=== PATIENT | male | born 1960 | race Caucasian/White ===

== ENCOUNTER → 2020-06-12 10:05 | Outpatient (CLI) | payer OTHER, SELFPAY ==
--- NOTE | ~2020-06-12 | CT_ITS ---
EXAMINATION: CT abdomen pelvis wo con EXAM DATE: 06/12/2020 10:28 INDICATION: Acute right flank pain, Decreased appetite. Dark urine. Hypertension. TECHNIQUE: Spiral CT of the abdomen and pelvis was performed without contrast. Axial, coronal and s agittal images of the abdomen and pelvis were reviewed. The dose-length product (DLP) for this exami nation was 835.84 mGy-cm. The exposure was tailored according to patient size (auto mA exposure cont rol), and iterative reconstruction (ASIR) was used as additional dose reduction technique. There is no prior study for comparison. FINDINGS: Appendix is severely dilated with extensive adjacent inflammation and also suspect perforat ion with a 1.2 cm fluid pocket probably early abscess. Cecal base is edematous. The liver, spleen, a drenal glands and pancreas are unremarkable. Gallbladder is unremarkable. No biliary obstruction. There is no nephrolithiasis or hydronephrosis. The prostate is unremarkable. The bladder is collap sed at time of imaging limiting evaluation. There is no retroperitoneal or pelvic lymphadenopathy. There is mild scattered arteriosclerotic disease. The stomach and small bowel are unremarkable. There is expected amount of colonic stool. No free i ntraperitoneal gas. The heart is normal in size. There are no pericardial or pleural effusions. M ild basilar emphysema. The bones are unremarkable. IMPRESSION: Findings consistent with perforated appendicitis. Probable small adjacent abscess. I discussed acute findings with Rozina Meza PA-C at 06/12/2020 10:40 CDT. Reviewed, dictated and finalized at location A. IMPRESSION: Findings consistent with perforated appendicitis. Probable small ad jacent abscess. I discussed acute findings with Rozina Meza PA-C at 06/12/2020 10:40 CDT .
== END ==
PROVIDERS: PCP Physician Assistant; Visit Provider Physician Assistant
DX: R10.9 Unspecified abdominal pain (principal); R63.0 Anorexia
CPT/HCPCS: 74176

== ENCOUNTER 2020-06-12 11:04 | Inpatient (IN) | payer OTHER, MEDICAID, SELFPAY ==
[2020-06-12] VITALS (14 sets, daily range): BP systolic 105–158; BP diastolic 62–106; PULSE 77–102; RESP 15–30; TEMP 36.1–36.8; O2SAT 74–99; BMI 29.6
--- NOTE | ~2020-06-12 | XR_ITS ---
XR chest 1V portable DATE: 06/13/2020 18:44 INDICATION: Shortness of breath. Hypoxia. History of hypertension. Former smoker. TECHNIQUE: Portable AP chest on 06/13/2020 at 1846 hours COMPARISON: 06/12/2020 AP and lateral chest FINDINGS: Heart size appears normal. There is moderately prominent elevation the right leaf of the di aphragm. There are bibasilar infiltrates and/atelectasis. No pulmonary vascular congestion or pleural effusion or pneumothorax is evident. IMPRESSION: Bibasilar infiltrate and/atelectasis Reviewed, dictated and finalized at location A.
--- NOTE | ~2020-06-12 | XR_ITS ---
EXAMINATION: XR chest 2V DATE: 06/12/2020 15:16 INDICATION: Perforated acute appendicitis. Preop. TECHNIQUE: Frontal and lateral views of the chest were obtained. COMPARISON: CT abdomen and pelvis 06/12/2020 FINDINGS: The chest demonstrates clear lungs without pneumonia, pleural effusion, or pneumothorax. Th e heart size is normal. IMPRESSION: 1. No acute cardiopulmonary disease. Reviewed, dictated and finalized at location A.
--- NOTE | ~2020-06-12 | CT_ITS ---
EXAMINATION: CTA chest PE abdomen pel EXAM DATE: 06/14/2020 11:06 INDICATION: Hypoxia, worse fever/leukocytosis with appendicitis . TECHNIQUE: Spiral CTA of the chest (pulmonary arteries) was performed with 100 cc Omnipaque 350 intr avenous contrast injection. Images were acquired during the pulmonary arterial phase. Coronal maxi mum intensity projection 3D-reconstructions were created by the technologist on dedicated workstation . Axial, coronal and sagittal reformatted images were reviewed. Spiral CT of the abdomen and pelvis was then performed with the same intravenous contrast injection. Axial, coronal and sagittal reform atted images were reviewed. The dose-length product (DLP) for this examination was 1096.58 mGy-cm. The exposure was tailored according to patient size (auto mA exposure control), and iterative recons truction (ASIR) was used as additional dose reduction technique. Comparison is made to prior examinat ion from 06/12/2020. FINDINGS: CHEST: Pulmonary arteries are well opacified and without intraluminal filling defects. No thoracic aortic dissection. There is mild to moderate emphysema. Development of bibasilar subsegmental atele ctasis. There are no pleural or pericardial effusions. Tracheobronchial tree is patent. There is no mediastinal, hilar or axillary lymphadenopathy. There is no pneumothorax. Heart normal in siz e. No evidence of coronary arterial calcification. ABDOMEN PELVIS: Patient has perforated appendicitis, with a contained periappendiceal abscess and alex rounding phlegmon measuring about 3 cm in diameter, has increased in size compared to 06/12. No free i ntraperitoneal air. There is moderate amount of colonic fluid and gas. There is mild scattered coloni c diverticulosis. There is no adjacent inflammatory change to suggest diverticulitis. The liver, spleen, adrenal glands and pancreas are unremarkable. Gallbladder is unremarkable. No bi liary obstruction. Portal and splenic veins are patent. Kidneys enhance symmetrically. There is no hydronephrosis. Calcified vasa deferentia. The prostate is unremarkable. Some diffuse bladder wall thickening, could indicate chronic cystitis. Acute cystitis not excludable. There is no retroperito antonino or pelvic lymphadenopathy. There is mild scattered arteriosclerotic disease. There are no os teoblastic or osteolytic lesions identified. IMPRESSION: 1. Perforated appendicitis, periappendiceal abscess now measuring 3 cm in diameter. 2. Diffuse bladder wall thickening, could indicate chronic cystitis. 3. Development of scattered bibasilar subsegmental atelectasis. 4. No pulmonary emboli. Reviewed, dictated and finalized at location A. IMPRESSION: 1. Perforated appendicitis, periappendiceal abscess now measuring 3 cm in diam eter. 2. Diffuse bladder wall thickening, could indicate chronic cystitis. 3. Development of scattered bibasilar subsegmental atelectasis. 4. No pulmonary emboli.
[2020-06-12 11:20] LABS: Basophils Absolute Auto 0.1 K/mm3 (0.0-0.1); Basophils Percent Auto 0.7 % (0.2-1.2); Eosinophils Absolute Auto 0.1 K/mm3 (0-0.3); Eosinophils Percent Auto 0.6 % (0-4.4); Hematocrit 48.6 % (42.0-52.0); Immature Granulocyte Absolute 0.05 K/mm3 (0.00-0.031); Immature Granulocyte Percent A 0.4 % (0-0.5); Lymphocytes Absolute Auto 1.77 K/mm3 (0.9-3.2); Lymphocytes Percent Auto 15.4 % (18.3-44.2); Mean Corpuscular HGB Conc 32.9 g/dl (32-36); Mean Corpuscular Hemoglobin 30.2 pg (26-34); Mean Corpuscular Volume 91.9 fl (80-100); Mean Platelet Volume 10.6 fl (7.4-10.4); Monocytes Absolute Auto 1.7 K/mm3 (0.1-0.6); Monocytes Percent Auto 14.5 % (2.6-8.5); Neutrophils Absolute Auto 7.8 K/mm3 (1.3-6.7); Neutrophils Percent Auto 68.4 % (45.5-73.1); Platelet Count Result 303 k/mm3 (150-375); Red Blood Count 5.29 M/mm3 (4.6-6.20); Red Cell Distribution Width 14.2 % (11.5-14.5); White Blood Count 11.5 K/mm3 (4.5-10.0)
[2020-06-12 11:29] LABS: Appearance Urine Clear (Clear); Bilirubin Urine 1+ (Negative); Blood Urine Negative (Negative); Color Urine Yellow (Yellow); Glucose Urine UA Negative (Negative); Ketones Urine 1+ mg/dL (Negative); Leukocyte Esterase Ur Negative LEU/UL (Negative); Nitrate Urine Negative (Negative); Protein Urine 1+ mg/dL (Negative); Specific Grav Ur 1.025 (1.001-1.035); pH Urine 5.5 (5.0-9.0)
[2020-06-12 11:31] LABS: Alanine Aminotransferase 32 U/L (4-50); Albumin Level 4.2 g/dL (3.5-5.1); Alkaline Phosphatase 75 U/L (38-126); Anion Gap 7 mmol/L (8-16); Aspartate Amino Transferase 40 U/L (17-59); Bilirubin,Total 1.1 mg/dL (0.2-1.3); Blood Urea Nitrogen 27 mg/dL (9-20); Calcium 8.9 mg/dL (8.4-10.2); Carbon Dioxide 27 mmol/L (22-30); Chloride 102 mmol/L (98-107); Estimated CRCL calculation 57 ml/min; Estimated Glomerular Filt Rate 56; Glucose 106 mg/dL (75-110); Lipase 202 U/L (23-300); Potassium 4.7 mmol/L (3.4-5.0); Sodium 136 mmol/L (137-145)
[2020-06-12 11:53] LABS: Add Urine Microscopic? YES
[2020-06-12 11:55] LABS: Squamous Epithelial Cell Urine Rare /hpf (Few)
--- NOTE | 2020-06-12 12:11 | ED.ABDPAIN ---
HPI - Abdominal Pain General Chief Complaint: Abdominal Pain Stated Complaint: abd pain Time Seen by Provider: 06/12/20 11:32 History of Present Illness HPI narrative: Patient is a 60-year-old male who presents ER with abdominal pain ongoing for last 5 days. Its been located in his right lower quadrant. No radiation. Noticed his urine became darker in appearance so he opted to go to a urgent care today. He had outpatient CT scan performed that showed perforated appendicitis. Patient denies fevers or chills or sweats. No diarrhea or blood in his stools. Pain increases with movement. Has not been taking any pain medications. Related Data Home Medications Medication Instructions Recorded Confirmed atorvastatin 10 mg PO 06/12/20 glyburide 2.5 mg PO 06/12/20 lisinopril 10 mg PO 06/12/20 metformin mg 06/12/20 06/12/20 metoprolol succinate 100 mg PO 06/12/20 Allergies Allergy/AdvReac Type Severity Reaction Status Date / Time No Known Allergies Allergy Unverified 06/12/20 11:34 Review of Systems Review of Systems: All systems reviewed & are unremarkable except as noted in HPI and below Constitutional: Constitutional: Denies chills, Denies fever(s) and Denies weakness Cardiovascular: Cardiovascular: Denies chest pain and Denies radiating jaw, neck or arm pain Respiratory: Respiratory: Denies cough and Denies dyspnea Gastrointestinal: Gastrointestinal: Reports abdominal pain, Denies constipation, Denies diarrhea, Denies nausea and Denies vomiting Genitourinary: Genitourinary: Reports hematuria, Denies oliguria and Denies dysuria PMFSH Past Medical History Medical History (Updated 06/12/20 @ 12:19 by Guillermo Shabazz MD) Blindness of right eye Diabetes Hypercholesterolemia Hypertension Surgical History Surgical History (Updated 06/12/20 @ 12:14 by Guillermo Shabazz MD) No pertinent past surgical history Social History Social History (Updated 06/12/20 @ 12:14 by Guillermo Shabazz MD) Smoking status: Current every day smoker Gender identity (if verbalized by the patient): Male Exam Narrative: Exam Narrative: GENERAL: Well-appearing, well-nourished, and in no acute distress. HEAD: Normocephalic, atraumatic. CHEST: Clear to auscultation. No respiratory distress. HEART: Regular rate and rhythm. Normal peripheral pulses. ABDOMEN: Soft, mild TTP in RLQ w/o guarding, nondistended. EXTREMITIES: Normal range of motion. No edema. SKIN: Warm, dry, no rash. NEURO: Alert and oriented x3. PSYCH: Normal mood and affect. Course Reevaluation(s) Reevaluation #1: Informed of results. Invanz for abx. Discussed with Dr. Membreno. Admit to his service. Continues abx. Date: 06/12/20 Time: 12:16 Vital Signs Vital signs: Vital Signs Temperature 97.0 F L 06/12/20 11:06 Pulse Rate 85 06/12/20 11:06 Respiratory Rate 18 06/12/20 11:06 Blood Pressure 124/76 06/12/20 11:06 Pulse Oximetry 98 06/12/20 11:06 Temperature 97 F L 06/12/20 11:31 Pulse Rate 84 06/12/20 11:31 Respiratory Rate 18 06/12/20 11:31 Blood Pressure 124/76 06/12/20 11:31 Pulse Oximetry 99 06/12/20 11:31 MDM - Abdominal Pain Lab Data Result diagrams: 06/12/20 11:12 06/12/20 11:12 Labs: Lab Results 06/12/20 06/12/20 06/12/20 Range/Units 11:12 11:12 11:16 WBC 11.5 H (4.5-10.0) K/mm3 RBC 5.29 (4.6-6.20) M/mm3 Hgb 16.0 (14.0-18.0) g/dL Hct 48.6 (42.0-52.0) % MCV 91.9 (80-100) fl MCH 30.2 (26-34) pg MCHC 32.9 (32-36) g/dl RDW 14.2 (11.5-14.5) % Plt Count 303 (150-375) k/mm3 MPV 10.6 H (7.4-10.4) fl Immature Gran % (Auto) 0.4 (0-0.5) % Neut % (Auto) 68.4 (45.5-73.1) % Lymph % (Auto) 15.4 L (18.3-44.2) % [place] % (Auto) 14.5 H (2.6-8.5) % Eos % (Auto) 0.6 (0-4.4) % Baso % (Auto) 0.7 (0.2-1.2) % Lymph # (Auto) 1.77 (0.9-3.2) K/mm3 [place] # (Auto) 1.7 H (0.1-0.6) K/mm3 Eos # (Auto
[2020-06-12] MEDS: ERTAPENEM 1 GM/NS 50 ML 1 GM/50 ML BAG IVPB (12:29)
--- NOTE | 2020-06-12 14:42 | ECG_ITS ---
Measurements Intervals [place] Rate: 77 P: 53 AL: 153 QRS: -3 QRSD: 94 T: 22 QT: 384 QTc: 435 Interpretive Statements SINUS RHYTHM VENTRICULAR PREMATURE COMPLEX BORDERLINE ECG Electronically Signed On 06-13-2020 8:22:28 CDT by Jp Kitchen D.O.
--- NOTE | 2020-06-12 15:05 | PC.NURSE ---
Pt to XY at this time.
--- NOTE | 2020-06-12 15:48 | ADMGEN ---
This patient, Andrea Aguirre June, was admitted to [facility] Surg Room 314-01. Patient/family oriented to hospital policies and general routines including ID bracelet, bed and alarms, visiting hours, pain management, procedures, bathroom and other care routines, personal items, smoking policy, room service/diet, and visiting hours. Information on how to activate the Rapid Response Team has been discussed. Patient/Family are encouraged to report perceived risks to care and to ask questions if they do not understand what they are told or what they should do.
[2020-06-12] MEDS: SODIUM CHLORIDE 0.9% IV 1,000 ML 125 ML IV CONT (15:55)
[2020-06-12] MEDS: HYDROcodone/acetaminophen (*CRX) 5-325 MG TABLET 1 TAB PO (15:58)
--- NOTE | 2020-06-12 16:47 | PM.IMHP ---
H&P: HPI History of Present Illness Date/Time: 06/12/20 16:47 Chief Complaint: Right lower quadrant abdominal pain Narrative: This is a 60-year-old male with a history of type 2 diabetes, hypertension, and hyperlipidemia. He has had ongoing right-sided abdominal pain for the past 5 days. The pain was constant but seemed mild initially. He reports associated bloating and constipation. No fever, chills, nausea, or vomiting. Today, he noticed his urine was dark and he had a poor appetite. Due to the added symptoms, he decided to go to his primary care provider for further evaluation. They ordered a CT scan of the abdomen and pelvis, which showed perforated appendicitis with a small 1.2 cm adjacent fluid collection, likely small abscess. Labs showed mild leukocytosis. Our service was consulted by the ED provider for evaluation of the perforated appendicitis. The patient is now admitted in this setting. He has been started on IV Ertapenem, IV fluids, and was made NPO. The patient is now seen on the medical floor. He reports that his pain is tolerable at this time. No specific aggravating factors. He reports his last BM was 3-4 days ago and prior to that BM he had some diarrhea. Reports little flatus earlier today. Denies a history of previous abdominal surgery. He denies every having a colonoscopy in the past. He reports having a Cologuard test about 1 year ago, which came back positive. His PCP recommended that he have a Colonoscopy, but due to finances, he has not scheduled this or proceeded with seeing a Acetylene Operator. Review of Systems Review of Systems: All systems reviewed & are unremarkable except as noted in HPI and below Constitutional: Constitutional: Reports as per HPI, Denies chills, Denies fatigue, Denies fever(s) and Reports poor appetite Eyes: Eyes: Reports no additional eye complaints and Denies change in vision ENT: Reports system reviewed and no additional complaints, except as documented, Reports Normal hearing present and Denies dizziness Cardiovascular: Cardiovascular: Reports no additional cardiovascular complaints, Denies chest pain, Denies leg edema and Denies dyspnea Respiratory: Respiratory: Reports no additional respiratory complaints, Denies cough and Denies dyspnea Gastrointestinal: Gastrointestinal: Reports as per HPI, Reports no additional gastrointestinal complaints, Reports abdominal pain, Reports bloating, Denies hematochezia, Denies tenesmus, Reports constipation, Reports diarrhea, Denies nausea and Denies vomiting Genitourinary: Genitourinary: Denies hematuria, Denies dysuria and Reports other (dark urine) Musculoskeletal: Musculoskeletal: Denies abnormal gait, Denies deformity, Denies joint swelling, Denies numbness and Denies tingling Integumentary/Breasts: Skin/Breast: Denies wounds and Denies jaundice Neurologic: Reports system reviewed and no additional complaints, except as documented, Reports Normal hearing present, Denies abnormal gait, Denies dizziness, Denies focal weakness, Denies numbness and Denies tingling Psychiatric: Psychiatric: Denies anxiety and Denies depression Endocrine: Endocrine: Denies fatigue PMFSH Past Medical History Medical History (Updated 06/12/20 @ 16:55 by FRANSICO Rose) Blindness of right eye Since 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
[2020-06-12] MEDS: MORPHINE SULFATE (*CRX) 4 MG/ML INJ IV PUSH (17:47)
[2020-06-12 17:54] LABS: Glucose Point of Care 82 (65-105)
[2020-06-12 21:12] LABS: Glucose Point of Care 118 (65-105)
[2020-06-12] MEDS: MORPHINE SULFATE (*CRX) 2 MG/ML INJ IV PUSH (21:34)
[2020-06-13] VITALS (8 sets, daily range): BP systolic 78–110; BP diastolic 56–68; PULSE 88–100; RESP 20; TEMP 37.1–37.2; O2SAT 93–95; BMI 29.6
[2020-06-13] MEDS: SODIUM CHLORIDE 0.9% IV 1,000 ML 125 ML IV CONT
[2020-06-13] MEDS: MORPHINE SULFATE (*CRX) 2 MG/ML INJ IV PUSH (05:46)
[2020-06-13 06:19] LABS: Basophils Absolute Auto 0.1 K/mm3 (0.0-0.1); Basophils Percent Auto 0.5 % (0.2-1.2); Eosinophils Percent Auto 0.2 % (0-4.4); Hematocrit 42.7 % (42.0-52.0); Hemoglobin 14.2 g/dL (14.0-18.0); Immature Granulocyte Absolute 0.05 K/mm3 (0.00-0.031); Immature Granulocyte Percent A 0.4 % (0-0.5); Lymphocytes Absolute Auto 1.65 K/mm3 (0.9-3.2); Lymphocytes Percent Auto 12.8 % (18.3-44.2); Mean Corpuscular HGB Conc 33.3 g/dl (32-36); Mean Corpuscular Hemoglobin 30.5 pg (26-34); Mean Corpuscular Volume 91.6 fl (80-100); Mean Platelet Volume 10.9 fl (7.4-10.4); Monocytes Absolute Auto 1.7 K/mm3 (0.1-0.6); Monocytes Percent Auto 12.8 % (2.6-8.5); Neutrophils Absolute Auto 9.5 K/mm3 (1.3-6.7); Neutrophils Percent Auto 73.3 % (45.5-73.1); Platelet Count Result 269 k/mm3 (150-375); Red Blood Count 4.66 M/mm3 (4.6-6.20); Red Cell Distribution Width 14.1 % (11.5-14.5); White Blood Count 12.9 K/mm3 (4.5-10.0)
[2020-06-13 06:25] LABS: Anion Gap 6 mmol/L (8-16); Blood Urea Nitrogen 17 mg/dL (9-20); Calcium 8.1 mg/dL (8.4-10.2); Carbon Dioxide 25 mmol/L (22-30); Chloride 105 mmol/L (98-107); Estimated CRCL calculation 60 ml/min; Estimated Glomerular Filt Rate > 60; Glucose 99 mg/dL (75-110); Magnesium 1.7 mg/dL (1.6-2.3); Potassium 4.3 mmol/L (3.4-5.0); Sodium 136 mmol/L (137-145)
--- NOTE | 2020-06-13 06:28 | PC.NURSE ---
MD Membreno notified that the patient had a low oxygen of 84% on room air. RN auscultated crackles in the lung encinas, patient denies shortness of breath. notified that the patient is 95% on 3L. Patient has dark urine and a total of 900 measurable output. notified that the patient is still having complaints of abdominal pain that is only relieved by morphine. Patient is awake and alert and oriented. stated he would like to continue with the fluids but decrease the rate from 125ml/hr to 50 ml/hr.
[2020-06-13 06:42] LABS: Hemoglobin A1C 6.3 % (<5.7)
[2020-06-13] MEDS: SODIUM CHLORIDE 0.9% IV 1,000 ML 50 ML IV CONT (06:48)
[2020-06-13 06:52] LABS: Glucose Point of Care 80 (65-105)
[2020-06-13 07:54] LABS: Glucose Point of Care 91 (65-105)
[2020-06-13] MEDS: polyethylene glycoL 3350 17 GM POWD.PACK PO (08:16)
[2020-06-13] MEDS: lisinopriL 10 MG TABLET PO (08:17)
[2020-06-13] MEDS: glyBURIDE 2.5 MG TABLET PO (08:17)
[2020-06-13] MEDS: MAGNESIUM 13.5 MG TABLET (250 MG MAG GLUCONATE) PO (08:17)
[2020-06-13] MEDS: HYDROcodone/acetaminophen (*CRX) 5-325 MG TABLET 1 TAB PO (08:18)
[2020-06-13] MEDS: metFORMIN HCL 500 MG TABLET 1000 MG PO (08:18)
[2020-06-13] MEDS: METOPROLOL SUCCINATE EXT REL 100 MG TABCR PO (08:18)
[2020-06-13] MEDS: ASPIRIN 81 MG ENTERIC TABLET PO (08:18)
--- NOTE | 2020-06-13 11:25 | PCNSR ---
On 06/13/20, the student, Leticia Pennington, provided care and completed [facility] this patient. I have reviewed the student's documentation and agree with the findings.
[2020-06-13 11:29] LABS: Glucose Point of Care 54 (65-105)
[2020-06-13] MEDS: ERTAPENEM 1 GM/NS 50 ML 1 GM/50 ML BAG IVPB (11:51)
[2020-06-13 12:52] LABS: Glucose Point of Care 59 (65-105)
--- NOTE | 2020-06-13 12:53 | PM.PNGS ---
Progress Note: A&P Assessment and Plan (1) Acute appendicitis with appendiceal abscess: Code(s): K35.33 - Acute appendicitis with perforation and localized peritonitis, with abscess Status: Acute Assessment and Plan: Patient still not having much pain and only mildly tender on exam. He has been afebrile, WBC 12,900. Continue IV Ertapenem. Advance to diabetic cons. carb diet. Given Miralax this am and if no BM later today, will have the nurse give a suppository. Encouraged walking the halls. Hypoxia this morning after receiving IV Morphine. Now requiring 4L O2, requirements have gone up through the day. Patient without respiratory complaints. Will consult Hospitalist for new hypoxia and medical management while he is hospitalized. (2) Diabetes: Code(s): E11.9 - Type 2 diabetes mellitus without complications Status: Inactive Assessment and Plan: Medications were restarted. Glucose in the 50's before lunch and rechecked after lunch, still in the 50's. Nurse will be giving the oral glucose now and recheck again. I will hold his Glyburide until patient is tolerating a more substantial diet. Continue AC/HS accuchecks. Will consult Hospitalist for medical management as well, appreciate help. (3) Hypertension: Code(s): I10 - Essential (primary) hypertension Status: Inactive Assessment and Plan: Lisinopril and metoprolol restarted. BP stable. Continue to monitor. (4) Alcohol abuse: Code(s): F10.10 - Alcohol abuse, uncomplicated Status: Acute Assessment and Plan: CIUT protocol. No signs of withdrawal at this time. Additional Plan I have discussed plan of care with Dr. Membreno. Subjective Subjective Date/Time Seen: 06/13/20 12:53 Patient reports: no new complaints, voiding w/o difficulty, flatus, no bowel movement and afebrile Interval history: Patient seen today with no new complaints. He states abdominal pain is about the same, worse when lying down in bed and better sitting up in the chair. Denies nausea, vomiting, or bloating. Tolerating full liquids. Reports lots of flatus but no BM yet. No other complaints at this time. Review of Systems Review of Systems: All systems reviewed & are unremarkable except as noted in HPI and below Constitutional: Constitutional: Reports as per HPI, Reports no additional constitutional complaints, Denies chills and Denies fever(s) Cardiovascular: Cardiovascular: Reports no additional cardiovascular complaints and Denies chest pain Respiratory: Respiratory: Reports no additional respiratory complaints, Denies cough and Denies dyspnea Gastrointestinal: Gastrointestinal: Reports as per HPI and Reports no additional gastrointestinal complaints Neurologic: Reports system reviewed and no additional complaints, except as documented, Denies Abnormal speech present and Denies focal weakness Exam Const: General: comfortable, no acute distress, alert and awake Orientation/consciousness: patient oriented x3 Resp: Effort & Inspection: normal respiratory effort Auscultation: clear to auscultation bilaterally Cardio: Rate: regular rate Rhythm: regular rhythm GI: Inspection: non-distended GI Palp: Yes Soft to palpation, Yes Tenderness to palpation present (GI) (RLQ, very mild), No Guarding due to palpation present (GI) and No Rebound tenderness present Auscultation: Hypoactive bowel sounds present Skin: General skin exam: normal color Neuro: General: moves all extremities and no focal motor deficits Extrem: General: no clubbing, cyanosis or edema and no calf tenderness Psych: Mental Status: mental status grossly normal Insight: Good insight present (Psych) Judgement: Good judgement present (Psych) Objective Data Vital Signs Vital Signs: Vital Signs - 24 hr 06/12/20 13:19 06/12/20 14:16 06/12/20 14:32 Temperature Pulse Rate 84 77 78 Respiratory Rate 21 H 30 H 15 Blood Pressure 158/94 H 140/82 114/84 Puls
[2020-06-13] MEDS: GLUCOSE ORAL GEL 15 GM OF GLUCSE IN 37.5 GM TUBE PO (13:14)
[2020-06-13] MEDS: BISACODYL 10 MG SUPPOSITORY RECTAL (13:57)
[2020-06-13 14:04] LABS: Glucose Point of Care 84 (65-105)
--- NOTE | 2020-06-13 17:49 | PM.IMCN ---
Assessment and Plan Assessment and plan (1) Hypoxia: Code(s): R09.02 - Hypoxemia Status: Acute Assessment and Plan: The patient is currently on 4 L. the patient stated that he may have COPD. He quit smoking many years ago. He has wheezing and decreased lung sounds on the left side. May consider steroids if the patient's condition does not improve. The patient could possibly even have atelectasis because he is not taking deep breaths due to the right lower quadrant discomfort. I did order an incentive spirometer that I feel that it may be difficult for the patient to use it due to the pain. Patient is receiving morphine which could decrease his respiratory drive. May also consider ABGs. I ordered a D-dimer. May consider a CT scan to rule out a PE. I will check a D-dimer but I believe it will probably be high due to the infectious process anyway. I also ordered some neb treatments as the patient is wheezing on that left side. (2) Hypertension: Code(s): I10 - Essential (primary) hypertension Status: Chronic Assessment and Plan: The patient has been on lisinopril. (3) Hypercholesterolemia: Code(s): E78.00 - Pure hypercholesterolemia, unspecified Status: Chronic Assessment and Plan: The patient is on atorvastatin. (4) Diabetes: Code(s): E11.9 - Type 2 diabetes mellitus without complications Status: Chronic Assessment and Plan: The patient is only on clear liquids and is on metformin and glyburide. His blood sugars are low so I am going to stop his oral medication and put him on a sliding scale insulin for now. (5) Acute appendicitis with appendiceal abscess: Code(s): K35.33 - Acute appendicitis with perforation and localized peritonitis, with abscess Status: Acute Assessment and Plan: The patient is on ertapenem and surgery is managing. HPI Data of Consult Consult date: 06/13/20 Requesting Physician: Dio Membreno MD Primary Care Provider: Maribel Genao, PA Consult Narrative Narrative: Andrea Garcia is a 60 year old male who came to the emergency yesterday after having a 5 day history of abdominal pain. He is having right lower quadrant pain that does not radiate anywhere. The patient stated that his urine was darker. He opted to go to urgent care and he had an outpatient CT scan performed that showed a perforated appendicitis. The patient was seen by surgery. The patient was started on ertapenem and IV fluids. The patient initially was NPO. But is taking liquids now. The patient has had a Cologuard about 1 year ago and came back positive. His primary care doctor recommended that he have a colonoscopy. However due to his finances he was not able to get a colonoscopy. Morphine and his oxygen level has been decreasing he is now to 4 L per nasal cannula. The hospitalist group has been consulted concerning his hypoxia. Also the patient has diabetes and was started on his oral medications. Patient is having blood sugars in the 50s. The patient has been admitted to inpatient and we were asked to consult on the date of 06/13/2020 Review of Systems Review of Systems: All systems reviewed & are unremarkable except as noted in HPI and below Constitutional: Constitutional: Reports as per HPI and Reports no additional constitutional complaints Eyes: Eyes: Reports as per HPI and Reports no additional eye complaints ENT: Reports system reviewed and no additional complaints, except as documented and Reports Normal hearing present Cardiovascular: Cardiovascular: Reports no additional cardiovascular complaints Respiratory: Respiratory: Reports no additional respiratory complaints and Reports no additional respiratory complaints Gastrointestinal: Gastrointestinal: Reports as per HPI and Reports no additional gastrointestinal complaints Musculoskeletal: Musculoskeletal: Reports no additional musculoskeletal complaints Integument
[2020-06-13] MEDS: FUROSEMIDE INJ 40 MG/4 ML VIAL 20 MG IV PUSH (18:05)
[2020-06-13 18:11] LABS: Glucose Point of Care 118 (65-105)
[2020-06-13 18:34] LABS: Alveolar/Arterial O2 Gradient 131.1 mmHg; Base Excess ABG -2.8 mEq/l (+/-2.0); Fractional Inspired Oxygen 30 %; HCO3 ABG 20.7 mEq/l (22.0-26.0); Oxyhemoglobin 81.4 % THb (90.0-100.0); PCO2 ABG 32.8 mmHg (35.0-45.0); PO2 FiO2 Ratio Arterial Blood 1.48 %; Total Hemoglobin 14.9 g/dL (12.0-18.0)
[2020-06-13 18:36] LABS: PO2 ABG 44.3 mmHg (80.0-100.0)
[2020-06-13 18:37] LABS: Device NASAL CANNULA; Liters per Minute 2.5 LPM; Modified Allen's Test Pass; Oxygen Saturation ABG 81.6 % (95.0-100.0); Site Drawn LEFT RADIAL; pH ABG 7.418 (7.350-7.450)
[2020-06-13 18:48] LABS: D Dimer 3.94 ug/mL (<0.48)
[2020-06-13 18:51] LABS: Hemoglobin A1C 6.2 % (<5.7)
[2020-06-13 22:16] LABS: Glucose Point of Care 101 (65-105)
[2020-06-14 06:00] VITALS: BP 99/67; PULSE 83; RESP 20; TEMP 37.8; O2SAT 94
[2020-06-14 06:50] LABS: Anion Gap 5 mmol/L (8-16); Blood Urea Nitrogen 16 mg/dL (9-20); Calcium 8.4 mg/dL (8.4-10.2); Carbon Dioxide 28 mmol/L (22-30); Chloride 102 mmol/L (98-107); Estimated CRCL calculation 55 ml/min; Estimated Glomerular Filt Rate > 60; Glucose 88 mg/dL (75-110); Potassium 4.3 mmol/L (3.4-5.0); Sodium 135 mmol/L (137-145)
[2020-06-14 07:05] LABS: Basophils Absolute Auto 0.1 K/mm3 (0.0-0.1); Basophils Percent Auto 0.5 % (0.2-1.2); Eosinophils Absolute Auto 0.1 K/mm3 (0-0.3); Eosinophils Percent Auto 0.3 % (0-4.4); Hematocrit 41.6 % (42.0-52.0); Hemoglobin 13.9 g/dL (14.0-18.0); Immature Granulocyte Absolute 0.06 K/mm3 (0.00-0.031); Immature Granulocyte Percent A 0.4 % (0-0.5); Lymphocytes Absolute Auto 1.97 K/mm3 (0.9-3.2); Lymphocytes Percent Auto 13.4 % (18.3-44.2); Mean Corpuscular HGB Conc 33.4 g/dl (32-36); Mean Corpuscular Hemoglobin 30.3 pg (26-34); Mean Corpuscular Volume 90.6 fl (80-100); Mean Platelet Volume 11.1 fl (7.4-10.4); Monocytes Percent Auto 13.4 % (2.6-8.5); Neutrophils Absolute Auto 10.5 K/mm3 (1.3-6.7); Platelet Count Result 290 k/mm3 (150-375); Red Blood Count 4.59 M/mm3 (4.6-6.20); Red Cell Distribution Width 14.2 % (11.5-14.5); White Blood Count 14.7 K/mm3 (4.5-10.0)
[2020-06-14 07:48] LABS: Glucose Point of Care 102 (65-105)
[2020-06-14 09:41] VITALS: PULSE 85
[2020-06-14] MEDS: MAGNESIUM 13.5 MG TABLET (250 MG MAG GLUCONATE) PO (09:41)
[2020-06-14] MEDS: METOPROLOL SUCCINATE EXT REL 100 MG TABCR PO (09:41)
[2020-06-14] MEDS: ENOXAPARIN 40 MG/0.4 ML SYRINGE SUB-Q (09:42)
[2020-06-14] MEDS: ASPIRIN 81 MG ENTERIC TABLET PO (09:42)
--- NOTE | 2020-06-14 10:58 | PM.PNGS ---
Progress Note: A&P Assessment and Plan (1) Acute appendicitis with appendiceal abscess: Code(s): K35.33 - Acute appendicitis with perforation and localized peritonitis, with abscess Status: Acute Assessment and Plan: WBC up today to 14,700 and patient febrile. Blood pressure soft as well. He is still requiring 3L oxygen. Discussed the case with Dr. Membreno and the Hospitalist. He will be getting a CTA of the chest to better assess his pulmonary status. We recommended also getting a CT of the abdomen and pelvis to reassess the perforated appendicitis with abscess. Unclear as of yet what is causing his fever and leukocytosis. Continue to monitor closely. Continue IV Ertapenem. Give Miralax again today. Tolerating a diabetic diet. Encouraged patient to be up walking the halls and sitting in chair for meals. Encouraged IS use. Repeat labs tomorrow morning. (2) Hypoxia: Code(s): R09.02 - Hypoxemia Status: Acute Assessment and Plan: CTA chest today. Still requiring 3L O2. ABG possible mixed venous sample. Discussed with Hospitalist, appreciate help. (3) Diabetes: Code(s): E11.9 - Type 2 diabetes mellitus without complications Status: Chronic Assessment and Plan: Hypoglycemia yesterday. Oral medications held. Tolerating a more substantial diet. Now on sliding scale with accuchecks. Management per Hospitalist, appreciate help. (4) Hypertension: Code(s): I10 - Essential (primary) hypertension Status: Chronic Assessment and Plan: BP soft this morning. Lisinopril held. Beta magda continued. Management per Hospitalist. Additional Plan I have discussed plan of care with Dr. Membreno. Subjective Subjective Date/Time Seen: 06/14/20 10:58 Patient reports: no new complaints, tolerating a regular diet, flatus, bowel movement (yesterday) and fever (100.1 F this morning) Interval history: Patient feels about the same today. Reports his abdominal pain is unchanged. No worse or better. He reports flatus and small BM yesterday. Tolerating his diet. Voiding without complaints. BP slightly low this morning and temperature 100.1 F. WBC trending up. Still requiring 3L O2. Review of Systems Review of Systems: All systems reviewed & are unremarkable except as noted in HPI and below Cardiovascular: Cardiovascular: Reports no additional cardiovascular complaints, Denies chest pain and Denies pedal edema Respiratory: Respiratory: Reports no additional respiratory complaints, Denies cough and Denies dyspnea Gastrointestinal: Gastrointestinal: Reports as per HPI and Reports no additional gastrointestinal complaints Exam Const: General: comfortable, no acute distress, alert and awake Orientation/consciousness: patient oriented x3 Resp: Effort & Inspection: able to speak in complete sentences and no respiratory distress Auscultation: clear to auscultation bilaterally Cardio: Rate: regular rate Rhythm: regular rhythm GI: Inspection: other (mildly distended) GI Palp: Yes Soft to palpation, Yes Tenderness to palpation present (GI) (RLQ, unchanged), No Guarding due to palpation present (GI) and No Rebound tenderness present Auscultation: normal bowel sounds Skin: General skin exam: normal color Neuro: General: moves all extremities and no focal motor deficits Extrem: General: no clubbing, cyanosis or edema and no calf tenderness Psych: Mental Status: mental status grossly normal Insight: Good insight present (Psych) Judgement: Good judgement present (Psych) Objective Data Vital Signs Vital Signs: Vital Signs - 24 hr 06/13/20 14:00 06/13/20 19:00 06/13/20 21:44 Temperature 98.8 F Pulse Rate 88 Respiratory Rate 20 Blood Pressure 97/60 L Pulse Oximetry 95 94 93 06/13/20 22:00 06/14/20 06:00 06/14/20 09:41 Temperature 98.9 F 100.1 F H Pulse Rate 92 83 85 Respiratory Rate 20 20 Blood Pressure 78/56 L 99/67 L Pulse Oximetry 93 94 In
[2020-06-14 11:44] LABS: Glucose Point of Care 125 (65-105)
[2020-06-14 12:01] LABS: Lactic Acid Reflex 1.2 mmol/L (0.7-2.1)
[2020-06-14 12:02] LABS: Alanine Aminotransferase 28 U/L (4-50); Albumin Level 3.8 g/dL (3.5-5.1); Alkaline Phosphatase 82 U/L (38-126); Aspartate Amino Transferase 44 U/L (17-59); Bilirubin,Total 0.9 mg/dL (0.2-1.3)
[2020-06-14] MEDS: ERTAPENEM 1 GM/NS 50 ML 1 GM/50 ML BAG IVPB (12:12)
[2020-06-14 12:17] LABS: CRP 24.3 mg/dL (<1.0)
[2020-06-14 12:18] VITALS: O2SAT 96
--- NOTE | 2020-06-14 13:49 | PM.IMPN ---
Progress Note: A&P Assessment and Plan (1) Acute appendicitis with appendiceal abscess: Code(s): K35.33 - Acute appendicitis with perforation and localized peritonitis, with abscess Status: Acute Assessment and Plan: Consistent with pts symptoms and CT findings -abscess has grown since initial imaging, await sx recommendations -Last fever 100.1 06/14 at 6a, leukocytosis slightly worse -Continue ertapenem -surgery on board (2) Acute respiratory failure with hypoxia: Code(s): J96.01 - Acute respiratory failure with hypoxia Status: Acute Assessment and Plan: Could be due to atelectasis or worsening infection on top of [id number] emphysema -CTA did not show any pneumonia or PE -wean oxygen as tolerated (3) Sepsis: Code(s): A41.9 - Sepsis, unspecified organism Status: Acute Assessment and Plan: Patient qualifies for sepsis with hypotension and leukocytosis in the setting of appendicitis -repeat imaging shows abscesses about 3 cm, surgery on board. Will await their recommendations -lactic acid is normal, Qsofa is 1 -continue ertapenem (4) Hypertension: Code(s): I10 - Essential (primary) hypertension Status: Chronic Assessment and Plan: Patient has been hypotensive during the stay -Hold lisinopril (5) Hypercholesterolemia: Code(s): E78.00 - Pure hypercholesterolemia, unspecified Status: Chronic Assessment and Plan: Continue atorvastatin (6) Diabetes: Code(s): E11.9 - Type 2 diabetes mellitus without complications Status: Chronic Assessment and Plan: Last glucose 125 -A1c 6.2 -Continue SSI -Hold home glyburide and metformin Time Spent With Patient Time with patient: 25 - 35 minutes Subjective Date/time seen: 06/14/20 13:49 Interval history: Pt is a 60-year-old male here for appendicitis. Patient was seen today and states he is feeling good. He has no nausea, vomiting, chills, chest pain, shortness of breath or leg swelling. He has never had a history of blood clots. He has a little bit of abdominal pain in the right lower quadrant that is unchanged. No lightheadedness or dizziness. Review of Systems Review of Systems: All systems reviewed & are unremarkable except as noted in HPI and below Exam Narrative: Exam Narrative: General: Well developed well nourished patient in NAD HEENT: normocephalic Neck: supple Neuro: Alert and oriented x4 CV:RRR Resp:CTA Abd: Soft, non distended. Pain to palpation to the right lower quadrant. Positive bowel sounds Extremities: No swelling, erythema, or pain to palpation. Objective Data Vital Signs Vital Signs: Vital Signs - 24 hr 06/13/20 14:00 06/13/20 19:00 06/13/20 21:44 Temperature 98.8 F Pulse Rate 88 Respiratory Rate 20 Blood Pressure 97/60 L Pulse Oximetry 95 94 93 06/13/20 22:00 06/14/20 06:00 06/14/20 09:41 Temperature 98.9 F 100.1 F H Pulse Rate 92 83 85 Respiratory Rate 20 20 Blood Pressure 78/56 L 99/67 L Pulse Oximetry 93 94 06/14/20 12:18 Temperature Pulse Rate Respiratory Rate Blood Pressure Pulse Oximetry 96 Intake/Output Intake/Output: Intake & Output 06/11/20 06/12/20 06/13/20 06/14/20 23:59 23:59 23:59 23:59 Intake Total 1930 3030 1230 Output Total 900 850 Balance 1930 2130 380 Meds/Results Medications: Active Medications Generic Name Dose Route Start Last Admin Trade Name Freq PRN Reason Stop Dose Admin Hydrocodone Bitart/Acetaminophen 1 tab 06/12/20 14:35 06/13/20 08:18 Hydrocodone/Acetaminophen (*Crx) 5-325 Mg Tablet PO 1 tab Q6H PRN Administration Moderate Pain (4-6) Albuterol 2.5 mg 06/13/20 17:47 Albuterol Sulfate Neb 2.5 Mg/0.5 Ml Inh INHALATION Q4HRT PRN Shortness Of Breath Aspirin 81 mg 06/13/20 09:00 06/14/20 09:42 Aspirin 81 Mg Enteric Tablet PO 07/13/20 09:01 81 mg DAILY FLORIAN Admini
[2020-06-14 14:00] VITALS: BP 109/65; PULSE 79; RESP 20; TEMP 36.7; O2SAT 94
[2020-06-14 16:27] LABS: Glucose Point of Care 98 (65-105)
[2020-06-14 17:51] LABS: Procalcitonin 0.1 ng/mL
[2020-06-14 22:00] VITALS: BP 109/82; PULSE 96; RESP 18; TEMP 37.8; O2SAT 90
[2020-06-14 22:02] LABS: Glucose Point of Care 130 (65-105)
[2020-06-15 06:00] VITALS: BP 107/70; PULSE 80; RESP 18; TEMP 36.8; O2SAT 93
[2020-06-15 06:32] LABS: Basophils Absolute Auto 0.1 K/mm3 (0.0-0.1); Basophils Percent Auto 0.8 % (0.2-1.2); Eosinophils Absolute Auto 0.1 K/mm3 (0-0.3); Eosinophils Percent Auto 1.2 % (0-4.4); Hematocrit 43.5 % (42.0-52.0); Hemoglobin 14.6 g/dL (14.0-18.0); Immature Granulocyte Absolute 0.05 K/mm3 (0.00-0.031); Immature Granulocyte Percent A 0.5 % (0-0.5); Lymphocytes Absolute Auto 1.85 K/mm3 (0.9-3.2); Lymphocytes Percent Auto 16.7 % (18.3-44.2); Mean Corpuscular HGB Conc 33.6 g/dl (32-36); Mean Corpuscular Hemoglobin 31.1 pg (26-34); Mean Corpuscular Volume 92.6 fl (80-100); Mean Platelet Volume 10.8 fl (7.4-10.4); Monocytes Absolute Auto 1.3 K/mm3 (0.1-0.6); Monocytes Percent Auto 11.5 % (2.6-8.5); Neutrophils Absolute Auto 7.7 K/mm3 (1.3-6.7); Neutrophils Percent Auto 69.3 % (45.5-73.1); Platelet Count Result 313 k/mm3 (150-375); White Blood Count 11.1 K/mm3 (4.5-10.0)
[2020-06-15 06:48] LABS: Alanine Aminotransferase 36 U/L (4-50); Albumin Level 3.6 g/dL (3.5-5.1); Alkaline Phosphatase 82 U/L (38-126); Anion Gap 6 mmol/L (8-16); Aspartate Amino Transferase 43 U/L (17-59); Bilirubin,Total 0.6 mg/dL (0.2-1.3); Blood Urea Nitrogen 17 mg/dL (9-20); Calcium 8.5 mg/dL (8.4-10.2); Carbon Dioxide 29 mmol/L (22-30); Chloride 102 mmol/L (98-107); Estimated CRCL calculation 60 ml/min; Estimated Glomerular Filt Rate > 60; Glucose 122 mg/dL (75-110); Sodium 137 mmol/L (137-145)
[2020-06-15 07:00] LABS: CRP 20.2 mg/dL (<1.0)
[2020-06-15] MEDS: ASPIRIN 81 MG ENTERIC TABLET PO (09:43)
[2020-06-15 09:44] VITALS: PULSE 80
[2020-06-15] MEDS: METOPROLOL SUCCINATE EXT REL 100 MG TABCR PO (09:44)
[2020-06-15] MEDS: ENOXAPARIN 40 MG/0.4 ML SYRINGE SUB-Q (09:44)
[2020-06-15] MEDS: MAGNESIUM 13.5 MG TABLET (250 MG MAG GLUCONATE) PO (09:44)
--- NOTE | 2020-06-15 10:35 | PM.DS ---
DS: Admitting Diagnosis Admitting Diagnosis Admitting Diagnosis: acute appendicitis with perforation and periappendiceal abscess DS: Discharge Diagnosis Discharge Diagnosis (1) Acute appendicitis with appendiceal abscess: Onset Date: Unknown Code(s): K35.33 - Acute appendicitis with perforation and localized peritonitis, with abscess Status: Acute Assessment and Plan: On set was suspected 5 days before admission. This was the main reason for the patient's admission. He has core morbid factors of his hypertension and diabetes but these were fairly well controlled. He was started on IV antibiotics and repeat CT scan 2 days after admission revealed slightly enlargement of the abscess but it was all still contained. Patient's pain is gradually subsided on antibiotics. He has had 4 days of Invanz. Will now switch to Levaquin and Flagyl for another 10 days and in view of his age will probably plan to do an outpatient colonoscopy prior to and interval appendectomy. Timing on these will be decided as an outpatient. Patient has never had a colonoscopy in the past therefore we do not know if there is something on the inside of his cecum that led to occlusion of the inner opening of the appendix at could of led to his appendicitis. (2) Diabetes: Onset Date: Unknown Code(s): E11.9 - Type 2 diabetes mellitus without complications Status: Chronic Assessment and Plan: Patient usually takes metformin and glyburide for this at home. This will probably be resumed. He was on q.i.d. Accu-Cheks and intermittent insulin in the hospital due to his NPO status and gradually increasing his diet again. We got the hospitalist to see in consultation while he was in and they are watching this for us. They will describe to him how he should care for his diabetes in the next 2 weeks. We will have him follow up with his primary care nurse practitioner in 2 weeks to continue good care of his diabetes as we plan for his colonoscopy and subsequent interval appendectomy on elective basis. (3) Hypertension: Onset Date: Unknown Code(s): I10 - Essential (primary) hypertension Status: Chronic Assessment and Plan: Seems to be fairly well controlled on current medications. We did have to hold this some because of low blood pressure during his hospital stay. He did get somewhat short of breath for a while but it may have been either fluid overload or some atelectasis that led to his need for some oxygen for a couple of days. By the time of discharge he was showing normal O2 saturation on pulse oximetry without oxygen. DS: Summary Hospital Course Reason for hospitalization: Acute appendicitis with perforation and periappendiceal abscess Hospital Course: The patient had a fairly uneventful hospital course. He was started on IV antibiotics upon admission. We followed his blood pressure and diabetes for the 1st day or to then consulted the hospitalist to help. He started having some mild shortness of breath after several L of fluid were given for resuscitation because he was somewhat dehydrated upon admission. We did check for a PE with a CTA of the chest which was negative. A repeat CT scan 2-3 days after his admission showed that the abscess Near his appendix had grown slightly but there was no signs of free air or other problems within the abdomen and the patient was having gradually less than less pain in the abdomen and was able to tolerate a diet. Therefore, on 06/15/2020 both the hospitalist and myself felt that he could be discharged on 10 more days of p.o. antibiotics I will then plan to see him next week in the office prior to going off antibiotics. He has never had a colonoscopy before and when someone is in his age group we need to be sure that he does not have a right-sided cecal tumor that led to his appendicitis. Therefore, if all goes well we will plan to do this 4-6 weeks after his recovery fr
[2020-06-15] MEDS: ERTAPENEM 1 GM/NS 50 ML 1 GM/50 ML BAG IVPB (11:07)
[2020-06-15 11:25] LABS: Glucose Point of Care 116 (65-105)
--- NOTE | 2020-06-15 11:35 | PM.IMPN ---
Progress Note: A&P Assessment and Plan (1) Acute appendicitis with appendiceal abscess: Onset Date: Unknown Code(s): K35.33 - Acute appendicitis with perforation and localized peritonitis, with abscess Status: Acute Assessment and Plan: Consistent with pts symptoms and CT findings -continue outpt abx, follow up with Dr. Membreno -pt to come back if his pain or fevers worsen -blood cultures with NGTD but will be monitored until final (2) Acute respiratory failure with hypoxia: Code(s): J96.01 - Acute respiratory failure with hypoxia Status: Acute Assessment and Plan: Resolved, Could be due to atelectasis or [id number] emphysema -CTA did not show any pneumonia or PE -pt off o2 (3) Sepsis: Code(s): A41.9 - Sepsis, unspecified organism Status: Acute Assessment and Plan: Patient qualifies for sepsis with hypotension and leukocytosis in the setting of appendicitis -repeat imaging shows abscesses about 3 cm, surgery on board. f/u outpt continue abx -lactic acid is normal, Qsofa is 1, procalcitonin not suggestive of severe sepsis (4) Hypertension: Onset Date: Unknown Code(s): I10 - Essential (primary) hypertension Status: Chronic Assessment and Plan: Pt had some low bp but feeling okay -continue home meds, watch for signs of hypotension (5) Hypercholesterolemia: Code(s): E78.00 - Pure hypercholesterolemia, unspecified Status: Chronic Assessment and Plan: Continue atorvastatin (6) Diabetes: Onset Date: Unknown Code(s): E11.9 - Type 2 diabetes mellitus without complications Status: Chronic Assessment and Plan: Last glucose 116 -A1c 6.2 -Continue home glyburide and metformin (7) Elevated d-dimer: Code(s): R79.89 - Other specified abnormal findings of blood chemistry Status: Acute Assessment and Plan: Likely d/t infection -no PE -no signs of DVT -Wells criteria for DVT -(negative) 2 which makes DVT unlikely . Pt educated to call his pcp or come to ER if he notice swelling Subjective Date/time seen: 06/15/20 11:35 Interval history: Pt is a 60-year-old male here for appendicitis. Patient was seen today and states he is feeling good. He has no nausea, vomiting, chills, chest pain, shortness of breath or leg swelling. He has never had a history of blood clots. He has a little bit of abdominal pain in the right lower quadrant that is unchanged. No lightheadedness or dizziness. He is ready to go home. Exam Narrative: Exam Narrative: General: Well developed well nourished patient in NAD HEENT: normocephalic Neck: supple Neuro: Alert and oriented x4 CV:RRR Resp:CTA Abd: Soft, non distended. Pain to palpation to the right lower quadrant. Positive bowel sounds Extremities: No swelling, erythema, or pain to palpation. Objective Data Vital Signs Vital Signs: Vital Signs - 24 hr 06/14/20 12:18 06/14/20 14:00 06/14/20 22:00 Temperature 98.0 F 100.1 F H Pulse Rate 79 96 Respiratory Rate 20 18 Blood Pressure 109/65 109/82 Pulse Oximetry 96 94 90 06/15/20 06:00 06/15/20 09:44 Temperature 98.3 F Pulse Rate 80 80 Respiratory Rate 18 Blood Pressure 107/70 Pulse Oximetry 93 Intake/Output Intake/Output: Intake & Output 06/12/20 06/13/20 06/14/20 06/15/20 23:59 23:59 23:59 23:59 Intake Total 1930 3030 2070 315 Output Total 900 850 Balance 1930 2130 1220 315 Meds/Results Medications: Active Medications Generic Name Dose Route Start Last Admin Trade Name Freq PRN Reason Stop Dose Admin Hydrocodone Bitart/Acetaminophen 1 tab 06/12/20 14:35 06/13/20 08:18 Hydrocodone/Acetaminophen (*Crx) 5-325 Mg Tablet PO 1 tab Q6H PRN Administration Moderate Pain (4-6) Albuterol 2.5 mg 06/13/20 17:47 Albuterol Sulfate Neb 2.5 Mg/0.5 Ml Inh INHALATION Q4HRT PRN Shortness Of [place]
[2020-06-15 12:57] LABS: Glucose Point of Care 135 (65-105)
[2020-06-15 12:57] LABS: Glucose Point of Care 162 (65-105)
--- NOTE | 2020-06-21 13:26 | PC.NURSE ---
Blood cx are negative.
== END 2020-06-15 12:16 | disposition home or self-care (01) | DRG 373 ==
LOC: ANHED 12:19 → ANH3MEDSUR 15:08
PROVIDERS: Emergency Medicine; Nurse Practitioner; Nurse Practitioner Family; Physician Assistant; Admitting Provider Surgery; Emergency Provider Emergency Medicine; PCP Physician Assistant; Visit Provider Surgery
DX: K35.33 Acute appendicitis with perforation, localized peritonitis, and gangrene, with abscess; E78.00 Pure hypercholesterolemia, unspecified; F10.10 Alcohol abuse, uncomplicated; E11.9 Type 2 diabetes mellitus without complications; I10 Essential (primary) hypertension; Z79.82 Long term (current) use of aspirin; Z79.899 Other long term (current) drug therapy; Z87.891 Personal history of nicotine dependence
CPT/HCPCS: 36415; 36600; 71045; 71046; 71275; 74177; 80048; 80053; 80076; 81001; 82805; 82948; 83036; 83605; 83690; 83735; 84145; 85025; 85380; 86140; 87040; 93005; 96365; 96367; 99291; A9270; G0379; J0131; J1335; J1650; J1940; J2270; J7030; Q9967

== ENCOUNTER 2020-07-28 19:06 | Inpatient (IN) | payer OTHER, MEDICAID, SELFPAY ==
[2020-07-28] VITALS (13 sets, daily range): BP systolic 109–120; BP diastolic 68–84; PULSE 75–98; RESP 16–23; TEMP 36–36.3; O2SAT 91–95; BMI 28.2
--- NOTE | ~2020-07-28 | CT_ITS ---
EXAMINATION: CT abdomen pelvis w con DATE: 07/28/2020 20:08 INDICATION: Abdominal pain, nausea and vomiting TECHNIQUE: Computed tomography (CT) of the abdomen and pelvis was performed with 100 cc Omnipaque 350 intravenous contrast. The dose-length product was 598.30 mGy-cm. Automated exposure control and iter ative reconstruction technique were employed. COMPARISON: CT dated 06/14/2020 FINDINGS: Bibasilar dependent atelectasis. Otherwise lung bases unremarkable. Heart size normal. Ther e is ascites. There are is diffusely dilated small bowel to the level of the ileocecal junction. The exam and ascending colon are thickened with irregular wall the appendix appears to be thickened and e nhancing. The liver, spleen, pancreas, adrenal glands and kidneys are unremarkable.. No significant vascular ab normality. No lymphadenopathy. There is focal narrowing of the ascending colon near the hepatic flexure, suspicious for stricture ca using obstruction. No evidence for aortic aneurysm or lymphadenopathy. No free air. No acute bone or joint abnormality. IMPRESSION: 1. Thickened irregular cecum and ascending colon with transition of the colon near the hepatic flexur e, suspicious for stricture with resultant obstruction. These findings may be secondary to underlying infectious/inflammatory changes, although mass is not excluded. 2: Thickened enhancing appendix with reduced surrounding inflammation/fluid since prior examination, suspicious for chronic appendicitis. 3: Small amount of ascites. Reviewed, dictated and finalized at location A. IMPRESSION: 1. Thickened irregular cecum and ascending colon with transition of the colon n ear the hepatic flexure, suspicious for stricture with resultant obstruction. T hese findings may be secondary to underlying infectious/inflammatory changes, a lthough mass is not excluded. 2: Thickened enhancing appendix with reduced surrounding inflammation/fluid si nce prior examination, suspicious for chronic appendicitis. 3: Small amount of ascites.
[2020-07-28 19:28] LABS: Basophils Absolute Auto 0.1 K/mm3 (0.0-0.1); Basophils Percent Auto 0.6 % (0.2-1.2); Eosinophils Absolute Auto 0.1 K/mm3 (0-0.3); Eosinophils Percent Auto 0.5 % (0-4.4); Hemoglobin 16.5 g/dL (14.0-18.0); Immature Granulocyte Absolute 0.08 K/mm3 (0.00-0.031); Immature Granulocyte Percent A 0.4 % (0-0.5); Lymphocytes Absolute Auto 2.16 K/mm3 (0.9-3.2); Lymphocytes Percent Auto 10.6 % (18.3-44.2); Mean Corpuscular HGB Conc 33.7 g/dl (32-36); Mean Corpuscular Hemoglobin 30.5 pg (26-34); Mean Corpuscular Volume 90.6 fl (80-100); Mean Platelet Volume 10.3 fl (7.4-10.4); Monocytes Absolute Auto 1.8 K/mm3 (0.1-0.6); Monocytes Percent Auto 8.9 % (2.6-8.5); Neutrophils Absolute Auto 16.1 K/mm3 (1.3-6.7); Platelet Count Result 414 k/mm3 (150-375); Red Blood Count 5.41 M/mm3 (4.6-6.20); Red Cell Distribution Width 16.8 % (11.5-14.5); White Blood Count 20.4 K/mm3 (4.5-10.0)
--- NOTE | 2020-07-28 19:33 | PC.NURSE ---
pt unable to provide urine sample at this time.
[2020-07-28 19:39] LABS: Alanine Aminotransferase 18 U/L (4-50); Albumin Level 4.5 g/dL (3.5-5.1); Alkaline Phosphatase 63 U/L (38-126); Anion Gap 10 mmol/L (8-16); Aspartate Amino Transferase 41 U/L (17-59); Bilirubin,Total 0.7 mg/dL (0.2-1.3); Blood Urea Nitrogen 19 mg/dL (9-20); Calcium 10.1 mg/dL (8.4-10.2); Carbon Dioxide 25 mmol/L (22-30); Chloride 104 mmol/L (98-107); Estimated CRCL calculation 65 ml/min; Estimated Glomerular Filt Rate > 60; Glucose 170 mg/dL (75-110); Lipase 64 U/L (23-300); Potassium 4.4 mmol/L (3.4-5.0); Sodium 139 mmol/L (137-145)
--- NOTE | 2020-07-28 19:51 | ED.GENADULT ---
HPI - General Adult General Chief complaint: Abdominal Pain Stated complaint: abdominal pain Time Seen by Provider: 07/28/20 19:25 History of Present Illness HPI narrative: Patient presents for evaluation of abdominal pain since last night around 1800. He states he had just gotten home from work at the time of symptom onset. Pain has been variable in terms of location within the abdomen. Pain is intermittent and described as sharp but without numerical rating. He has experienced nausea and vomiting that started this evening. He had difficulty sleeping last night partially related to the pain he is experiencing, although he indicates he is some chronic difficulty sleeping. States that he has experienced diaphoresis during episodes of vomiting. Of note, he was seen in this emergency department on 06/12/2020 after having an outpatient CT scan that showed appendicitis with rupture and periappendiceal abscess formation. He was treated with IV antibiotics and repeat CT scan 2 days after admission revealed slightly enlargement of the abscess, although this was contained. He received 4 days of Invanz was converted to oral Levaquin and Flagyl outpatient for another 10 days. Plan was for patient to have outpatient colonoscopy on 07/20/2020, however there were difficulties with his insurance have colonoscopy performed. Follow-up appointments with general surgery, Dr. Membreno, with last appointment on 06/28/2020. He is on oral medications at home to manage his DM, although he does not check his BS. Documentation from prior visit indicates that consideration would be given to interval appendectomy in this patient that could have appendiceal tumor also. Patient admits to consuming four whiskey containing beverages on a daily basis with last intake two days ago. Last bowel movement earlier today, soft in consistency, without the presence of blood or mucus in the stool. Related Data Home Medications Medication Instructions Recorded Confirmed aspirin 81 mg PO DAILY 06/12/20 07/10/20 atorvastatin 10 mg PO DAILY 06/12/20 07/10/20 glyburide 2.5 mg PO DAILY 06/12/20 07/10/20 lisinopril 10 mg PO DAILY 06/12/20 07/10/20 magnesium 250 mg PO DAILY 06/12/20 07/10/20 metformin 1,000 mg PO DAILY 06/12/20 07/10/20 metoprolol succinate 100 mg PO DAILY 06/12/20 07/10/20 duloxetine 30 mg PO DAILY 07/10/20 07/10/20 eslqnuobbfsp-[id number]-FA-vit K 1 tablet PO DAILY 07/10/20 07/10/20 [Adults Multivitamin] Allergies Allergy/AdvReac Type Severity Reaction Status Date / Time No Known Allergies Allergy Verified 07/28/20 19:28 Review of Systems Review of Systems: Narrative: CONSTITUTIONAL: Reports hot flashes and chills EYES: Denies visual changes, redness, or discharge. ENT: Denies rhinorrhea, congestion, sore throat, or otalgia. CARDIOVASCULAR: Denies chest pain, palpitations, or edema. RESPIRATORY: Denies cough or dyspnea. GASTROINTESTINAL: Reports abdominal pain, nausea, vomiting GENITOURINARY: Denies dysuria or hematuria. SKIN: Denies rash or itching. MUSCULOSKELETAL: Denies back pain, joint pain, or myalgia. NEUROLOGIC: Denies headache, numbness, dizziness, or weakness. PSYCHIATRIC: Denies anxiety or depression. 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 He occasionally drinks alcohol. The patient smoking many years ago. He denies any alcohol or illicit drugs. No durable power att
[2020-07-28] MEDS: ONDANSETRON INJ 4 MG/2 ML VIAL IV PUSH (20:15)
[2020-07-28] MEDS: SODIUM CHLORIDE 0.9% IV 500 ML 999 ML IV CONT (20:15)
[2020-07-28] MEDS: fentaNYL CITRATE INJ (*CRX) 100 MCG/2 ML VIAL 50 MCG IV PUSH (20:18)
[2020-07-28 21:06] LABS: Lactic Acid Reflex 1.6 mmol/L (0.7-2.1)
--- NOTE | 2020-07-28 22:49 | PM.IMHP ---
H&P: HPI History of Present Illness Date/Time: 07/28/20 22:49 Chief Complaint: Abdominal pain, nausea and vomiting Narrative: 60-year-old male past medical history of COPD, chronic alcohol use, diabetes, hypertension and perforated appendix 06/12/2020 who presented to the ER with abdominal pain that started around 6:00 p.m. on the . Patient had had an outpatient CT scan 06/12/2020 that demonstrated appendicitis with rupture and periappendiceal abscess. He was treated with Invanz and had a repeat CT scan 2 days later that revealed enlargement of abscess. He was continued on Invanz for 4 days and then was discharged on Levaquin and Flagyl for 10 days. He followed up with Dr. Membreno on 06/28/2020. He was supposed to have an outpatient colonoscopy 07/20/2020 but did not do so due to difficulties with his insurance. The plan was for a ventral appendectomy in the future. There was concern for possible underlying appendiceal tumor the cause for the patient's ruptured appendicitis. The patient reports that after his initial hospital course she has not had any further pain until yesterday. He began having generalized abdominal pain it sounds as if it is constant. The pain is a 6/10 in intensity. He had states that it ?just hurts?. He did not have any vomiting until this morning when he was driving into the ER. He reports that his emesis was clear in darkened color. He states that he had not had anything to eat all day but had had a couple of sodas 1 of which was a dark soda. He reports that ever since he had his initial illness he has been having smaller caliber of stools. He has been having on average 3-4 stools a day. The stools are brown and somewhat mushy/soft. He has not noticed any hematochezia or melena. He did have some episodes of diaphoresis when he was having his nausea and vomiting. He has not had any measured fevers. He denies any dysuria or changes in urinary frequency. He has chronic poor dentition but denies any current oral pain. Denies any chest pain, shortness of breath, cough or congestion. He reports that he does does not check his blood sugars as often as he should. He checked them several days ago and his glucoses were in the 200s. Patient does have a long history of alcohol abuse. He drinks about 818 pack of beer a week and 4-5 mixed drinks a week. He has not drank alcohol in last 2 days due to his abdominal pain. He never had any symptoms of alcohol withdrawal during his last hospitalization. Review of Systems Review of Systems: Narrative: 12 systems were reviewed with pertinent positives and negatives per HPI. Except as documented in the HPI, all other systems were reviewed and are negative. 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 Social History Social History (Updated 07/28/20 @ 22:58 by Shea Lay DO) Social History: The patient is he has 2 children. He regularly drinks alcohol. The patient smoking many years ago. He denies any alcohol or illicit drugs. No durable power assistant prosecuting attorney for healthcare. The patient is a full code. 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 Smoking packs per day: 1 Smoking cigarettes per day: 20.0 Years smoked: 30 Smoking pack-years: 30.00 Smoking status: Former smoker Tobacco type: cigarettes Additional smoking assessment comments: Quit
--- NOTE | 2020-07-28 22:53 | ADMGEN ---
This patient, Andrea Aguirre June, was admitted to 3 [facility] Surg Room 319-01. Patient/family oriented to hospital policies and general routines including ID bracelet, bed and alarms, visiting hours, pain management, procedures, bathroom and other care routines, personal items, smoking policy, room service/diet, and visiting hours. Information on how to activate the Rapid Response Team has been discussed. Patient/Family are encouraged to report perceived risks to care and to ask questions if they do not understand what they are told or what they should do.
[2020-07-28] MEDS: SODIUM CHLORIDE 0.9% IV 1,000 ML 125 ML IV CONT (23:21)
[2020-07-29] VITALS (8 sets, daily range): BP systolic 101–119; BP diastolic 57–75; PULSE 68–73; RESP 16–18; TEMP 36.2–36.6; O2SAT 92–95
[2020-07-29 03:08] LABS: Appearance Urine Clear (Clear); Bilirubin Urine Negative (Negative); Blood Urine Negative (Negative); Color Urine Yellow (Yellow); Glucose Urine UA Negative (Negative); Ketones Urine 1+ mg/dL (Negative); Leukocyte Esterase Ur Negative LEU/UL (Negative); Nitrate Urine Negative (Negative); Protein Urine Trace mg/dL (Negative); Urobilinogen Urine 0.2 mg/dL (<2.0); pH Urine 5.5 (5.0-9.0)
[2020-07-29 03:11] LABS: RBC Urine 0-2 /hpf (0-2); WBC Urine 0-3 /hpf
[2020-07-29 03:12] LABS: Mucus Urine Few /lpf; Squamous Epithelial Cell Urine Rare /hpf (Few)
[2020-07-29 03:13] LABS: Add Urine Microscopic? NO
[2020-07-29 05:51] LABS: Basophils Absolute Auto 0.1 K/mm3 (0.0-0.1); Basophils Percent Auto 0.3 % (0.2-1.2); Eosinophils Percent Auto 0.1 % (0-4.4); Hematocrit 45.4 % (42.0-52.0); Immature Granulocyte Absolute 0.11 K/mm3 (0.00-0.031); Immature Granulocyte Percent A 0.7 % (0-0.5); Lymphocytes Percent Auto 6.8 % (18.3-44.2); Mean Corpuscular Hemoglobin 30.5 pg (26-34); Mean Corpuscular Volume 92.3 fl (80-100); Mean Platelet Volume 10.4 fl (7.4-10.4); Monocytes Absolute Auto 1.7 K/mm3 (0.1-0.6); Monocytes Percent Auto 10.2 % (2.6-8.5); Neutrophils Absolute Auto 13.3 K/mm3 (1.3-6.7); Neutrophils Percent Auto 81.9 % (45.5-73.1); Platelet Count Result 371 k/mm3 (150-375); Red Blood Count 4.92 M/mm3 (4.6-6.20); Red Cell Distribution Width 16.5 % (11.5-14.5); White Blood Count 16.3 K/mm3 (4.5-10.0)
[2020-07-29 06:00] LABS: Anion Gap 7 mmol/L (8-16); Blood Urea Nitrogen 22 mg/dL (9-20); Calcium 8.7 mg/dL (8.4-10.2); Carbon Dioxide 28 mmol/L (22-30); Chloride 104 mmol/L (98-107); Estimated CRCL calculation 72 ml/min; Estimated Glomerular Filt Rate > 60; Glucose 151 mg/dL (75-110); Potassium 4.2 mmol/L (3.4-5.0); Sodium 139 mmol/L (137-145)
[2020-07-29] MEDS: SODIUM CHLORIDE 0.9% IV 1,000 ML 125 ML IV CONT (06:21)
[2020-07-29 06:26] LABS: Glucose Point of Care 130 mg/dl (65-105)
[2020-07-29] MEDS: FAMOTIDINE 20 MG/2 ML VIAL IV PUSH ×2 (10:10→20:19)
--- NOTE | 2020-07-29 10:37 | PM.IMPN ---
Progress Note: A&P Assessment and Plan (1) Appendicitis: Qualifiers: Appendicitis type: other Qualified Code(s): K36 - Other appendicitis Code(s): K37 - Unspecified appendicitis Status: Acute Assessment and Plan: Patient with recent hospitalization and outpatient general surgery follow up for acute appendicitis with abscess presents again with sudden abdominal pain, nausea, vomiting. He was feeling well after hospital discharge up until 1 day prior to arrival. Completed 4 days of IV ertapenem while hospitalized last month followed by 10 more days of oral abx. Was unable to get his colonoscopy 07/20 as scheduled due to insurance purposes. GI and general surgery consulted - appreciate further recommendations. Colonoscopy inpatient v outpatient may need performed to rule out appendiceal or cecal tumor. Interval appendectomy was previously discussed. For now, continue antibiotics with IV zosyn. Supportive care with bowel rest/NPO, pain control, antiemetics. (2) Colon stricture: Code(s): K56.699 - Other intestinal obstruction unspecified as to partial versus complete obstruction Status: Acute Assessment and Plan: CT demonstrates a thickened irregular cecum and ascending colon with transition of the colon near the hepatic flexure suspicious for stricture. May be related to inflammation although a mass is not excluded. Appreciate general surgery input. NPO. (3) Alcohol abuse: Code(s): F10.10 - Alcohol abuse, uncomplicated Status: Acute Assessment and Plan: No signs or symptoms of acute withdrawal on exam. Continue CIWA monitoring' (4) Hypertension: Onset Date: Unknown Qualifiers: Hypertension type: essential hypertension Qualified Code(s): I10 - Essential (primary) hypertension Code(s): I10 - Essential (primary) hypertension Status: Chronic Assessment and Plan: Oral medications are hold being NPO. His blood pressures are stable without them today, last 103/67. Monitor BP and adjust treatment as needed. (5) Diabetes: Onset Date: Unknown Qualifiers: Diabetes mellitus type: type 2 Diabetes mellitus long-term insulin use: without long-term use Diabetes mellitus complication status: without complication Qualified Code(s): E11.9 - Type 2 diabetes mellitus without complications Code(s): E11.9 - Type 2 diabetes mellitus without complications Status: Chronic Assessment and Plan: Hgb A1c 6.2% last month. His home glyburide and metformin are on hold. Continue to monitor with accu-cheks and adjust treatment as needed, cover with SSI. Subjective Date/time seen: 07/29/20 10:00 Interval history: Mr. Garcia is a 60yo M admitted for appendicitis. He reports abdominal pain is a bit improved. Had some mild nausea with some vomiting early this morning but tells me this is improved. He denies chest pain or shortness of breath. Has not really eaten anything since per patient. Review of Systems Review of Systems: All systems reviewed & are unremarkable except as noted in HPI and below Exam Narrative: Exam Narrative: General: Male resting comfortably supine in bed in no acute distress. HEENT: Normocephalic, EOMI, oral mucosa tacky, poor dentition. Cardiovascular: Rate and rhythm are regular. Respiratory: Lungs clear to auscultation bilaterally. Respirations even and non-labored. Tolerating room air. Abdomen: Soft, non-distended. Bowel sounds present. Tenderness to palpation of right mid abdomen without guarding. Extremities: Peripheral pulses intact. No edema or pain to palpation. Neuro: Awake and alert; answering questions appropriately. No focal neurological deficits. Speech is
[2020-07-29 12:24] LABS: Glucose Point of Care 96 mg/dl (65-105)
--- NOTE | 2020-07-29 13:33 | WPDGICN ---
Assessment and Plan Assessment and plan (1) Acute appendicitis with appendiceal abscess: Onset Date: Unknown Code(s): K35.33 - Acute appendicitis with perforation and localized peritonitis, with abscess Status: Acute Assessment and Plan: started on iv antibiotics, patient will be seeing again by surgery feeling better will need to do a colonoscopy, will reassess tomorrow again (I do not know if able to take bowel prep today) (2) Nausea and vomiting in adult: Code(s): R11.2 - Nausea with vomiting, unspecified Status: Acute Assessment and Plan: improved, will see if he can tolerate liquid diet (3) Abnormal CT scan, colon: Code(s): R93.3 - Abnormal findings on diagnostic imaging of other parts of digestive tract Status: Acute Assessment and Plan: will need a colonoscopy to assess if lesion/mass in colon (never had a colonoscopy) (4) Colon stricture: Code(s): K56.699 - Other intestinal obstruction unspecified as to partial versus complete obstruction Status: Acute Assessment and Plan: colonoscopy (5) Sepsis: Code(s): A41.9 - Sepsis, unspecified organism Status: Acute Assessment and Plan: on iv antibiotics surgery will see again (6) Alcohol abuse: Code(s): F10.10 - Alcohol abuse, uncomplicated Status: Acute Assessment and Plan: alcohol cessation thiamine GI Consult Note Consult date/time: 07/29/20 13:33 Reason for consult: abnormal colon by CT scan HPI: Andrea Garcia is a 60 year old male with history of COPD, chronic alcohol use, diabetes, hypertension and perforated appendix 06/12/2020 that has been treated medically (never had a colonoscopy). Initially had CT scan 06/12/2020 that was reviewed and showed appendicitis with rupture and periappendiceal abscess, treated with iv antibiotics and also evaluated by surgery. Initially the plan was for him to have outpatient colonoscopy then follow-up with surgery for definitive treatment but he had issues with his insurance (apparently was a concern for possible underlying appendiceal tumor as the cause for the patient's ruptured appendicitis). This time he came with worsening pain in RLQ, moderate intensity, then nausea with emesis. Also since he had his initial illness he has been having smaller caliber of stools but using restroom daily, no blood in stools. WBC elevated at 20k, CT scan reviewed, thickened irregular cecum and ascending colon with transition of the colon near the hepatic flexure, suspicious for stricture with resultant obstruction, thickened enhancing appendix with reduced surrounding inflammation/fluid since prior examination, suspicious for chronic appendicitis, small amount of ascites. Started on antibiotics and feeling better, less nauseous and pain improved. Review of Systems Constitutional: Constitutional: Denies weakness Eyes: Eyes: Reports no additional eye complaints ENT: Reports Normal hearing present Cardiovascular: Cardiovascular: Denies chest pain Respiratory: Respiratory: Denies dyspnea Gastrointestinal: Gastrointestinal: Reports abdominal pain, Reports nausea and Reports vomiting Genitourinary: Genitourinary: Denies dysuria Musculoskeletal: Musculoskeletal: Denies back pain Integumentary/Breasts: Skin/Breast: Denies dry skin Neurologic: Denies headache(s) Psychiatric: Psychiatric: Denies behavioral changes [facility] Past Medical History Medical History (Updated 07/29/20 @ 13:40 by Kp Mederos MD) Abnormal CT scan, colon 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
[2020-07-29 17:52] LABS: Glucose Point of Care 124 mg/dl (65-105)
[2020-07-29] MEDS: SODIUM CHLORIDE 0.9% IV 1,000 ML 100 ML IV CONT (20:17)
[2020-07-30 01:08] LABS: Glucose Point of Care 113 mg/dl (65-105)
[2020-07-30 01:08] LABS: Glucose Point of Care 99 mg/dl (65-105)
[2020-07-30 04:00] VITALS: BP 115/68; PULSE 70; RESP 18; TEMP 36.2; O2SAT 91
[2020-07-30 05:24] VITALS: BP 115/68; PULSE 70; RESP 18; TEMP 36.2; O2SAT 91
[2020-07-30] MEDS: SODIUM CHLORIDE 0.9% IV 1,000 ML 100 ML IV CONT ×2 (05:30→17:58)
[2020-07-30 05:39] LABS: Glucose Point of Care 108 mg/dl (65-105)
[2020-07-30 06:16] LABS: Basophils Absolute Auto 0.1 K/mm3 (0.0-0.1); Basophils Percent Auto 1.1 % (0.2-1.2); Eosinophils Absolute Auto 0.2 K/mm3 (0-0.3); Eosinophils Percent Auto 2.1 % (0-4.4); Hematocrit 43.5 % (42.0-52.0); Hemoglobin 14.8 g/dL (14.0-18.0); Immature Granulocyte Absolute 0.04 K/mm3 (0.00-0.031); Immature Granulocyte Percent A 0.5 % (0-0.5); Lymphocytes Absolute Auto 1.71 K/mm3 (0.9-3.2); Lymphocytes Percent Auto 20.7 % (18.3-44.2); Mean Platelet Volume 10.4 fl (7.4-10.4); Monocytes Absolute Auto 1.1 K/mm3 (0.1-0.6); Neutrophils Absolute Auto 5.2 K/mm3 (1.3-6.7); Neutrophils Percent Auto 62.6 % (45.5-73.1); Platelet Count Result 344 k/mm3 (150-375); Red Blood Count 4.63 M/mm3 (4.6-6.20); Red Cell Distribution Width 16.9 % (11.5-14.5); White Blood Count 8.3 K/mm3 (4.5-10.0)
[2020-07-30 06:40] LABS: Alanine Aminotransferase 11 U/L (4-50); Albumin Level 3.3 g/dL (3.5-5.1); Alkaline Phosphatase 37 U/L (38-126); Anion Gap 5 mmol/L (8-16); Aspartate Amino Transferase 26 U/L (17-59); Bilirubin,Total 0.5 mg/dL (0.2-1.3); Blood Urea Nitrogen 13 mg/dL (9-20); Calcium 8.3 mg/dL (8.4-10.2); Carbon Dioxide 26 mmol/L (22-30); Chloride 108 mmol/L (98-107); Estimated CRCL calculation 60 ml/min; Estimated Glomerular Filt Rate > 60; Glucose 110 mg/dL (75-110); Magnesium 1.9 mg/dL (1.6-2.3); Potassium 4.4 mmol/L (3.4-5.0); Sodium 139 mmol/L (137-145)
[2020-07-30 08:06] LABS: Glucose Point of Care 108 mg/dl (65-105)
[2020-07-30] MEDS: FAMOTIDINE 20 MG/2 ML VIAL IV PUSH ×2 (09:07→20:28)
--- NOTE | 2020-07-30 10:29 | PM.CNGS ---
Assessment and Plan Assessment and plan (1) Colon stricture: Code(s): K56.699 - Other intestinal obstruction unspecified as to partial versus complete obstruction Status: Acute Assessment and Plan: likely from inflammatory changes, zane diet, having loose BMs, await scope tomorrow (2) Appendicitis: Qualifiers: Appendicitis type: other Qualified Code(s): K36 - Other appendicitis Code(s): K37 - Unspecified appendicitis Status: Acute Assessment and Plan: will need interval appendectomy, cont abx History of Present Illness Consult details Consult date: 07/30/20 Reason for consult: abdominal pain Requesting physician: Shea Lay DO Narrative: Pt is a 60 y/o M known to the surgical service for recent admission for perforated appendicitis. Pt was treated conservatively c abx. Pt was to f/u for colonoscopy and likely interval appendectomy, however, pt had some insurance issues and was unable to follow up. Pt presented to hospital c/o recurrent R sided abd pain, nausea. Workup, including imaging, shows R sided colitis/stricture, chronic appendicitis. Pt has since been admitted and reports he is much better since receiving abx. Pt zane clears and having loose BMs. Pt is scheduled for colonoscopy tomorrow. Review of Systems Constitutional: Constitutional: Denies anorexia, Reports body ache(s), Reports chills, Reports fatigue, Reports fever(s), Denies headache(s), Reports lethargy, Reports malaise, Denies night sweats, Reports poor appetite, Reports weakness, Denies weight gain and Denies weight loss Eyes: Eyes: Reports no additional eye complaints ENT: Reports system reviewed and no additional complaints, except as documented Cardiovascular: Cardiovascular: Reports no additional cardiovascular complaints Respiratory: Respiratory: Reports no additional respiratory complaints Gastrointestinal: Gastrointestinal: Reports as per HPI, Reports abdominal pain, Reports GI cramping, Reports diarrhea, Reports loose stools, Reports nausea and Denies vomiting Genitourinary: Genitourinary: Reports no additional male genitourinary complaints Musculoskeletal: Musculoskeletal: Reports no additional musculoskeletal complaints Integumentary/Breasts: Skin/Breast: Reports system reviewed and no additional complaints, except as docu Neurologic: Reports system reviewed and no additional complaints, except as documented Psychiatric: Psychiatric: Reports no additional psychiatric complaints Endocrine: Endocrine: Reports no additional endocrine complaints Hematologic/Lymphatic: Hematologic/Lymphatic: Reports no additional hematologic/lymphatic complaints Allergic/Immunologic: Allergic/Immunologic: Reports no additional allergic/immunologic complaints PMFSH Past Medical History Medical History Abnormal CT scan, colon 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 Social History Social History Social History: The patient is he has 2 children. He regularly drinks alcohol. The patient smoking many years ago. He denies any alcohol or illicit drugs. No durable power workers compensation attorney for healthcare. The patient is a full code. 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 Smoking packs per day: 1 Smoking cigarettes per day: 20.0 Years smoked: 30 Smok
--- NOTE | 2020-07-30 10:56 | WPDGIPROGNO ---
Progress Note: A&P Assessment and Plan (1) Colon stricture: Code(s): K56.699 - Other intestinal obstruction unspecified as to partial versus complete obstruction Status: Acute Assessment and Plan: he is having bowel movements and pain improved colonoscopy tomorrow (discussed with surgery), then timing for either appy or even right hemicolectomy based on scope findings. (2) Abnormal CT scan, colon: Code(s): R93.3 - Abnormal findings on diagnostic imaging of other parts of digestive tract Status: Acute Assessment and Plan: colonoscopy (3) Appendicitis: Qualifiers: Appendicitis type: other Qualified Code(s): K36 - Other appendicitis Code(s): K37 - Unspecified appendicitis Status: Acute Assessment and Plan: much better with antibiotics (4) Leukocytosis: Code(s): D72.829 - Elevated white blood cell count, unspecified Status: Acute Assessment and Plan: normal today (5) Nausea and vomiting in adult: Code(s): R11.2 - Nausea with vomiting, unspecified Status: Acute Assessment and Plan: improved, will be able to tolerate prep (6) Sepsis: Code(s): A41.9 - Sepsis, unspecified organism Status: Acute (7) Alcohol abuse: Code(s): F10.10 - Alcohol abuse, uncomplicated Status: Acute Subjective Date/time seen: 07/30/20 10:56 Interval history: still with diarrhea, rlq pain improved, no more nausea. Review of Systems Review of Systems: All systems reviewed & are unremarkable except as noted in HPI and below Exam Const: General: comfortable and no acute distress HENMT: General nose exam: Normal nares present Eyes: General: appearance normal, both eyes and all related structures Neck: Neck: supple Resp: Auscultation: clear to auscultation bilaterally Cardio: Rate: regular rate GI: GI Palp: Yes Soft to palpation, Yes Tenderness to palpation present (GI) (mild ttp in rlq, no rebound) and No Guarding due to palpation present (GI) Auscultation: normal bowel sounds Skin: General skin exam: normal color Neuro: Speech: normal speech Motor exam (neuro): Normal motor muscle tone present throughout Extrem: General: normal to inspection Psych: Mental Status: mental status grossly normal Objective Data Vital Signs Vital Signs: Vital Signs - 24 hr 07/29/20 11:55 07/29/20 12:00 07/29/20 16:00 Temperature Pulse Rate 71 Pulse Rate [Monitor] 71 72 Respiratory Rate Blood Pressure 103/67 103/67 101/57 L Pulse Oximetry 07/29/20 20:00 07/29/20 22:00 07/29/20 23:54 Temperature 97.7 F 97.2 F L 97.2 F L Pulse Rate 71 72 72 Pulse Rate [Monitor] Respiratory Rate 18 18 18 Blood Pressure 119/75 113/66 113/66 Pulse Oximetry 95 92 92 07/30/20 04:00 07/30/20 05:24 Temperature 97.2 F L 97.2 F L Pulse Rate 70 70 Pulse Rate [Monitor] Respiratory Rate 18 18 Blood Pressure 115/68 115/68 Pulse Oximetry 91 91 Intake/Output Intake/Output: Intake & Output 07/27/20 07/28/20 07/29/20 07/30/20 23:59 23:59 23:59 23:59 Intake Total 550 3710 1910 Output Total 250 800 Balance 550 3460 1110 Meds/Results Medications: Active Medications Generic Name Dose Route Start Last Admin Trade Name Freq PRN Reason Stop Dose Admin Dextrose 12.5 gm 07/29/20 01:13 Dextrose 50% 25 Gm/50 Ml Syringe IV PUSH PRN PRN Hypoglycemia Protocol Famotidine 20 mg 07/29/20 09:00 07/30/20 09:07 Famotidine 20 Mg/2 Ml Vial IV PUSH 20 mg Q12HR FLORIAN Administration Glucagon 1 mg 07/29/20 01:13 Glucagon For Inj 1 Mg Vial IM PRN PRN Hypoglycemia Protocol Glucose 15 gm 07/29/20 01:13 Glucose Oral Gel 15 Gm Of Glucse In 37.5 Gm Tube PO PRN PRN Hypoglycemia Protocol Sodium Chloride 1,000 mls @ 100 mls/hr 07/28/20 21:55 07/30/20 05:30 Normal Saline Iv IV CONT 100 mls/hr .Q10H FLORIAN Administration Dextrose 1,000
[2020-07-30 11:23] LABS: Glucose Point of Care 135 mg/dl (65-105)
--- NOTE | 2020-07-30 13:09 | PM.IMPN ---
Progress Note: A&P Assessment and Plan (1) Appendicitis: Qualifiers: Appendicitis type: other Qualified Code(s): K36 - Other appendicitis Code(s): K37 - Unspecified appendicitis Status: Acute Assessment and Plan: Patient with recent hospitalization and outpatient general surgery follow up for acute appendicitis with abscess presents again with sudden abdominal pain, nausea, vomiting. He was feeling well after hospital discharge up until 1 day prior to arrival. Completed 4 days of IV ertapenem while hospitalized last month followed by 10 more days of oral abx. Was unable to get his colonoscopy 07/20 as scheduled due to insurance purposes. GI and general surgery consulted - appreciate further recommendations. Plan is for colonoscopy tomorrow to rule out appendiceal or cecal tumor. Interval appendectomy was previously discussed, pending scope results tomorrow. For now, continue antibiotics with IV zosyn (day 3). Supportive care with bowel rest/NPO, pain control, antiemetics. (2) Colon stricture: Code(s): K56.699 - Other intestinal obstruction unspecified as to partial versus complete obstruction Status: Acute Assessment and Plan: CT demonstrates a thickened irregular cecum and ascending colon with transition of the colon near the hepatic flexure suspicious for stricture. May be related to inflammation although a mass is not excluded. Appreciate general surgery input. Clear liquids today, NPO at midnight for scope tomorrow. (3) Alcohol abuse: Code(s): F10.10 - Alcohol abuse, uncomplicated Status: Acute Assessment and Plan: No signs or symptoms of acute withdrawal on exam. Continue CIWA monitoring. (4) Hypertension: Onset Date: Unknown Qualifiers: Hypertension type: essential hypertension Qualified Code(s): I10 - Essential (primary) hypertension Code(s): I10 - Essential (primary) hypertension Status: Chronic Assessment and Plan: Oral medications are held (lisinopril and metoprolol). His blood pressures are stable without them today, last 134/71. Monitor BP and adjust treatment as needed. (5) Diabetes: Onset Date: Unknown Qualifiers: Diabetes mellitus type: type 2 Diabetes mellitus alf insulin use: without termite control servicer use Diabetes mellitus complication status: without complication Qualified Code(s): E11.9 - Type 2 diabetes mellitus without complications Code(s): E11.9 - Type 2 diabetes mellitus without complications Status: Chronic Assessment and Plan: Hgb A1c 6.2% last month. His home glyburide and metformin are on hold. Blood sugars appropriate today. Continue to monitor with accu-cheks and adjust treatment as needed, cover with SSI. Subjective Date/time seen: 07/30/20 1215 Interval history: Mr. Garcia is a 60yo M admitted for appendicitis. He feels a bit better and notes his abdominal pain has improved since being here. He reports his belly feels a bit more bloated/distended than yesterday and his abdominal pain is vague/diffuse discomfort across mid abdomen this afternoon. Denies nausea or vomiting with clear liquid diet. Diarrhea started yesterday and continues today, 4 nonbloody diarrheal BMs this morning before noon. No chest pain or shortness of breath. Review of Systems Review of Systems: All systems reviewed & are unremarkable except as noted in HPI and below Exam Narrative: Exam Narrative: General: Male resting comfortably sitting up in bedside chair in no acute distress, eating lunch. HEENT: Normocephalic, EOMI, oral mucosa tacky, poor dentition. Cardiovascular: Rate and rhythm are regular. Respiratory: Lungs clear to auscultation bilaterally. Respiratio
[2020-07-30 14:00] VITALS: BP 134/71; PULSE 65; RESP 16; TEMP 36.6; O2SAT 94
[2020-07-30] MEDS: BISACODYL 5 MG TABLET EC 20 MG PO (17:58)
[2020-07-30 18:05] LABS: Glucose Point of Care 102 mg/dl (65-105)
[2020-07-30] MEDS: polyethylene glycoL 3350 238 GM BOTTLE PO (18:18)
[2020-07-30 20:00] VITALS: PULSE 71; RESP 22; O2SAT 99
[2020-07-30 22:00] VITALS: BP 119/83; PULSE 71; RESP 22; TEMP 36.6; O2SAT 99
[2020-07-31] VITALS (7 sets, daily range): BP systolic 92–160; BP diastolic 64–84; PULSE 69–98; RESP 16–26; TEMP 36.4–37; O2SAT 94–98; BMI 28.2
[2020-07-31 00:01] LABS: Glucose Point of Care 146 mg/dl (65-105)
[2020-07-31] MEDS: SODIUM CHLORIDE 0.9% IV 1,000 ML 100 ML IV CONT ×2 (04:38→18:19)
[2020-07-31] MEDS: MAGNESIUM CITRATE 300 ML BTL PO (04:40)
[2020-07-31 05:37] LABS: Hematocrit 46.7 % (42.0-52.0); Hemoglobin 15.2 g/dL (14.0-18.0); Mean Corpuscular HGB Conc 32.5 g/dl (32-36); Mean Corpuscular Hemoglobin 29.6 pg (26-34); Mean Platelet Volume 10.2 fl (7.4-10.4); Platelet Count Result 419 k/mm3 (150-375); Red Blood Count 5.13 M/mm3 (4.6-6.20); Red Cell Distribution Width 16.3 % (11.5-14.5)
[2020-07-31 06:04] LABS: Anion Gap 9 mmol/L (8-16); Blood Urea Nitrogen 5 mg/dL (9-20); Calcium 8.8 mg/dL (8.4-10.2); Carbon Dioxide 23 mmol/L (22-30); Chloride 110 mmol/L (98-107); Estimated CRCL calculation 65 ml/min; Estimated Glomerular Filt Rate > 60; Glucose 140 mg/dL (75-110); Potassium 4.4 mmol/L (3.4-5.0); Sodium 142 mmol/L (137-145)
[2020-07-31 06:40] LABS: Glucose Point of Care 130 mg/dl (65-105)
[2020-07-31] MEDS: FAMOTIDINE 20 MG/2 ML VIAL IV PUSH ×2 (08:55→20:48)
--- NOTE | 2020-07-31 11:52 | PM.IMPN ---
Progress Note: A&P Assessment and Plan (1) Appendicitis: Qualifiers: Appendicitis type: other Qualified Code(s): K36 - Other appendicitis Code(s): K37 - Unspecified appendicitis Status: Acute Assessment and Plan: Patient with recent hospitalization and outpatient general surgery follow up for acute appendicitis with abscess presents again with sudden abdominal pain, nausea, vomiting. He was feeling well after hospital discharge up until 1 day prior to arrival. Completed 4 days of IV ertapenem while hospitalized last month followed by 10 more days of oral abx. Was unable to get his colonoscopy 07/20 as scheduled due to insurance purposes. GI and general surgery consulted - appreciate further recommendations. Awaiting colonoscopy this afternoon to rule out appendiceal or cecal tumor. Interval appendectomy was previously discussed, pending scope results. For now, continue antibiotics with IV zosyn (day 4). Supportive care with bowel rest/NPO, pain control, antiemetics. (2) Colon stricture: Code(s): K56.699 - Other intestinal obstruction unspecified as to partial versus complete obstruction Status: Acute Assessment and Plan: CT demonstrates a thickened irregular cecum and ascending colon with transition of the colon near the hepatic flexure suspicious for stricture. May be related to inflammation although a mass is not excluded. Appreciate general surgery input. (3) Alcohol abuse: Code(s): F10.10 - Alcohol abuse, uncomplicated Status: Acute Assessment and Plan: No signs or symptoms of acute withdrawal on exam. Continue CIWA monitoring. (4) Hypertension: Onset Date: Unknown Qualifiers: Hypertension type: essential hypertension Qualified Code(s): I10 - Essential (primary) hypertension Code(s): I10 - Essential (primary) hypertension Status: Chronic Assessment and Plan: Oral medications are held (lisinopril and metoprolol). His blood pressures are stable without them today, last 125/84. Monitor BP and adjust treatment as needed. 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 His home glyburide and metformin are on hold. Blood sugars appropriate today. Continue to monitor with accu-cheks and adjust treatment as needed, cover with SSI. Subjective Date/time seen: 07/31/20 11:15 Interval history: Mr. Garcia is a 60yo M admitted for appendicitis. He describes some abdominal bloating but no worse than yesterday. He notes mid abdominal comfort 7/10 at this time. Slept a little. Having several bowel movements from bowel prep. Denies nausea or vomiting. He is hungry and anxious for his scope. Family member at the bedside. Denies chest pain or shortness of breath. Review of Systems Review of Systems: All systems reviewed & are unremarkable except as noted in HPI and below Exam Narrative: Exam Narrative: General: Male resting comfortably sitting up in bedside chair in no acute distress, visiting with family at bedside. HEENT: Normocephalic, EOMI, oral mucosa tacky, poor dentition. Cardiovascular: Rate and rhythm are regular. Respiratory: Lungs clear to auscultation bilaterally. Respirations even and non-labored. Tolerating room air. Abdomen: Soft, mildly distended. Bowel sounds present. Tenderness to palpation of right mid abdomen wi
--- NOTE | 2020-07-31 12:29 | PM.PNGS ---
Progress Note: A&P Assessment and Plan (1) Colon stricture: Code(s): K56.699 - Other intestinal obstruction unspecified as to partial versus complete obstruction Status: Acute Assessment and Plan: GI planning for colonoscopy later today. Will await results. (2) Appendicitis: Qualifiers: Appendicitis type: other Qualified Code(s): K36 - Other appendicitis Code(s): K37 - Unspecified appendicitis Status: Acute Assessment and Plan: Will eventually need at least an interval appendectomy. Continue IV abx. NPO with IV fluids for colonoscopy today. Additional Plan I have discussed the patient's case and plan of care with Dr. Miller. Subjective Subjective Date/Time Seen: 07/31/20 10:29 Patient reports: no new complaints, feels better, pain is less, flatus and bowel movement Interval history: Patient seen today. He tolerated the prep fair overnight. He had some bloating with the Miralax yesterday and was only able to finish about 2/3 of this he felt. He did move his bowels multiple times and feels better this morning. He reports his abdominal pain and bloating has improved. Reports his abdominal pain as generalized across his entire abd. No other complaints at this time. Review of Systems Review of Systems: All systems reviewed & are unremarkable except as noted in HPI and below Gastrointestinal: Gastrointestinal: Reports as per HPI and Reports no additional gastrointestinal complaints Exam Const: General: comfortable and no acute distress Orientation/consciousness: patient oriented x3 Cardio: Rate: regular rate Rhythm: regular rhythm GI: Inspection: distended GI Palp: Yes Soft to palpation, Yes Tenderness to palpation present (GI) (throughout, worse in right abd), No Guarding due to palpation present (GI) and No Rebound tenderness present Auscultation: normal bowel sounds Skin: General skin exam: normal color Neuro: General: moves all extremities and no focal motor deficits Extrem: General: no clubbing, cyanosis or edema and no calf tenderness Psych: Mental Status: mental status grossly normal Insight: Good insight present (Psych) Judgement: Good judgement present (Psych) Objective Data Vital Signs Vital Signs: Vital Signs - 24 hr 07/30/20 14:00 07/30/20 20:00 07/30/20 22:00 Temperature 97.9 F 98 F Pulse Rate 65 71 71 Respiratory Rate 16 22 H 22 H Blood Pressure 134/71 119/83 Pulse Oximetry 94 99 99 06/01/21 06:00 07/31/20 09:18 Temperature 97.6 F Pulse Rate 98 Respiratory Rate 20 Blood Pressure 125/84 Pulse Oximetry 97 97 Intake/Output Intake/Output: Intake & Output 07/28/20 07/29/20 07/30/20 07/31/20 23:59 23:59 23:59 23:59 Intake Total 550 3710 4210 1590 Output Total 250 1550 800 Balance 550 3460 2660 790 Meds/Results Medications: Active Medications Generic Name Dose Route Start Last Admin Trade Name Freq PRN Reason Stop Dose Admin Dextrose 12.5 gm 07/29/20 01:13 Dextrose 50% 25 Gm/50 Ml Syringe IV PUSH PRN PRN Hypoglycemia Protocol Famotidine 20 mg 07/29/20 09:00 07/31/20 08:55 Famotidine 20 Mg/2 Ml Vial IV PUSH 20 mg Q12HR FLORIAN Administration Glucagon 1 mg 07/29/20 01:13 Glucagon For Inj 1 Mg Vial IM PRN PRN Hypoglycemia Protocol Glucose 15 gm 07/29/20 01:13 Glucose Oral Gel 15 Gm Of Glucse In 37.5 Gm Tube PO PRN PRN Hypoglycemia Protocol Sodium Chloride 1,000 mls @ 100 mls/hr 07/28/20 21:55 07/31/20 04:38 Normal Saline Iv IV CONT 100 mls/hr .Q10H FLORIAN Administration Dextrose 1,000 mls @ 100 mls/hr 07/29/20 01:13 Dextrose 5% 1,000 Ml IVPB PRN PRN Hypoglycemia Protocol Piperacillin/Tazobactam/Dextrose 3.375 gm in 50 mls @ 100 mls/hr 07/29/20 09:00 07/31/20 08:53 Zosyn 3.375 Gm/D5w 50ml Pm IVPB 100 mls/hr Q6H FLORIAN Administration Lactated Ringer's 1,000 mls @ 150 mls/hr 07/31/20 08:45 Lr - Lactated
--- NOTE | 2020-07-31 12:37 | PC.NURSE ---
Patient to GI lab per wheelchair.
[2020-07-31 12:53] LABS: Glucose Point of Care 89 mg/dl (65-105)
[2020-07-31] MEDS: LACTATED RINGERS 1,000 ML 150 ML IV CONT (12:57)
[2020-07-31 13:09] LABS: Glucose Point of Care 112 mg/dl (65-105)
--- NOTE | 2020-07-31 13:47 | WPDANESEPPF ---
Anes - Initial Pre Proc Eval Procedure: Operation Date: 07/31/20 15:00 Proposed Procedures p Colonoscopy - Kp Mederos MD Date/Time: 07/31/20 13:47 Surgeon: Shea Lay DO Pre Op Diagnosis: GI stricture, chronic appendicitis Patient Data Age: 60 Gender: M Height: 5 ft 8 in Weight: 84.3 kg Last Vital Signs Temp 98.6 F 07/31/20 12:54 Pulse 69 07/31/20 12:54 Resp 22 H 07/31/20 12:54 BP 160/75 H 07/31/20 12:54 Pulse Ox 97 07/31/20 12:54 Allergies Allergy/AdvReac Type Severity Reaction Status Date / Time No Known Allergies Allergy Verified 07/31/20 12:52 Home Medications Medication Instructions Recorded Confirmed Type aspirin 81 mg PO DAILY 06/12/20 07/31/20 History atorvastatin 10 mg PO DAILY 06/12/20 07/31/20 History glyburide 2.5 mg PO DAILY 06/12/20 07/31/20 History lisinopril 10 mg PO DAILY 06/12/20 07/31/20 History magnesium 250 mg PO DAILY 06/12/20 07/31/20 History metformin 1,000 mg PO DAILY 06/12/20 07/31/20 History metoprolol succinate 100 mg PO DAILY 06/12/20 07/31/20 History duloxetine 30 mg PO DAILY 07/10/20 07/31/20 History fpxhecbybepr-rtd-dndd-FA-vit K 1 tablet PO DAILY 07/10/20 07/31/20 History [Adults Multivitamin] Laboratory Tests 07/30/20 07/30/20 07/31/20 18:03 23:58 05:15 WBC 8.0 K/mm3 K/mm3 (4.5-10.0) RBC 5.13 M/mm3 M/mm3 (4.6-6.20) Hgb 15.2 g/dL g/dL (14.0-18.0) Hct 46.7 % % (42.0-52.0) MCV 91.0 fl fl (80-100) MCH 29.6 pg D pg (26-34) MCHC 32.5 g/dl g/dl (32-36) RDW 16.3 % H % (11.5-14.5) Plt Count 419 k/mm3 H k/mm3 (150-375) MPV 10.2 fl fl (7.4-10.4) Sodium Potassium Chloride Carbon Dioxide Anion Gap BUN Creatinine Estim Creat Clear Calc Estimated GFR Glucose POC Capillary Glucose 102 mg/dl mg/dl 146 mg/dl H mg/dl (65-105) (65-105) Calcium 07/31/20 07/31/20 07/31/20 05:15 06:34 12:14 WBC RBC Hgb Hct MCV MCH MCHC RDW Plt Count MPV Sodium 142 mmol/L mmol/L (137-145) Potassium 4.4 mmol/L mmol/L (3.4-5.0) Chloride 110 mmol/L H mmol/L (98-107) Carbon Dioxide 23 mmol/L mmol/L (22-30) Anion Gap 9 mmol/L mmol/L (8-16) BUN 5 mg/dL L D mg/dL (9-20) Creatinine 1.00 mg/dL mg/dL (0.7-1.3) Estim Creat Clear Calc 65 ml/min ml/min Estimated GFR > 60 (59 - ) Glucose 140 mg/dL H mg/dL (75-110) POC Capillary Glucose 130 mg/dl H mg/dl 112 mg/dl H mg/dl (65-105) (65-105) Calcium 8.8 mg/dL mg/dL (8.4-10.2) 07/31/20 12:49 WBC RBC Hgb Hct MCV MCH MCHC RDW Plt Count MPV Sodium Potassium Chloride Carbon Dioxide Anion Gap BUN Creatinine Estim Creat Clear Calc Estimated GFR Glucose POC Capillary Glucose 89 mg/dl mg/dl (65-105) Calcium Patient hx anesthesia problems: none Family hx anesthesia problems: none PMFSH Past Medical History Medical History (Updated 07/30/20 @ 10:57 by Kp Mederos MD) Abnormal CT scan, colon Blindness of right eye Since the age of 1 Hypercholesterolemia Hypertension (Unknown) Leukocytosis Nausea and vomiting in adult Perforated appendicitis (06/12/20) Type 2 diabetes mellitus Surgical History Surgical History History of hand surgery Family History Family History Mother , Age 65 Cancer of kidney Fa
--- NOTE | 2020-07-31 14:50 | PC.NURSE ---
Patient returned from GI lab per wheelchair.
[2020-07-31 17:14] LABS: Glucose Point of Care 93 mg/dl (65-105)
[2020-08-01] MEDS: SODIUM CHLORIDE 0.9% IV 1,000 ML 100 ML IV CONT (04:47)
[2020-08-01 05:11] LABS: Glucose Point of Care 103 mg/dl (65-105)
[2020-08-01 06:00] VITALS: BP 134/75; PULSE 65; RESP 18; TEMP 36.8; O2SAT 93
[2020-08-01 08:48] LABS: Glucose Point of Care 115 mg/dl (65-105)
[2020-08-01] MEDS: FAMOTIDINE 20 MG/2 ML VIAL IV PUSH (08:52)
[2020-08-01 11:24] LABS: Glucose Point of Care 124 mg/dl (65-105)
--- NOTE | 2020-08-01 11:32 | WPDANESPN ---
Anes - Prog Note Post-Op Date/Time: 08/01/20 11:32 Cardiovascular status: normal Respiratory status: normal Airway patency: baseline Mental status: baseline Post-Op hydration status: normal Vital Signs: Last Vital Signs Temp 36.8 C 08/01/20 06:00 Pulse 65 08/01/20 06:00 Resp 18 08/01/20 06:00 BP 134/75 08/01/20 06:00 Pulse Ox 93 08/01/20 06:00 Pain Score (VAS): 0 I/O: Intake & Output 07/31/20 08/01/20 08/01/20 23:59 07:59 15:59 Intake Total 880 1250 50 Balance 880 1250 50 Laboratory Tests 07/31/20 05:15 07/31/20 05:15 07/31/20 07/31/20 07/31/20 12:14 12:49 17:10 POC Capillary Glucose 112 H 89 93 08/01/20 08/01/20 08/01/20 05:07 08:44 11:21 POC Capillary Glucose 103 115 H 124 H Post-procedural complaints: none Patient Feedback: Patient satisfied with anesthetic care.
--- NOTE | 2020-08-01 12:03 | PM.PNGS ---
Progress Note: A&P Assessment and Plan (1) Colon stricture: Code(s): K56.699 - Other intestinal obstruction unspecified as to partial versus complete obstruction Status: Acute Assessment and Plan: Colonoscopy yesterday noted a protruding, fungating, malignant appearing mass in the cecum along with localized colitis in the proximal ascending colon with a single opening that had active purulence drainage. Multiple biopsies were taken and are pending. An area was tattoo just distal to this side of active purulence drainage to assist with future surgery. Will advance patient to a low-fiber diet today. If he is tolerating a diet later today, then he can be discharged from a surgical standpoint. We would recommend continuing Levaquin for another 7 days and follow up with Dr. Membreno in 1 week in the office. The patient was instructed to call the office sooner with any increasing abdominal pain, fever, or vomiting. Will plan to schedule the patient for an outpatient right hemicolectomy. Dr. Membreno plans on calling the patient with biopsy results. (2) Appendicitis: Qualifiers: Appendicitis type: other Qualified Code(s): K36 - Other appendicitis Code(s): K37 - Unspecified appendicitis Status: Acute Assessment and Plan: See plan above. Additional Plan I have discussed the patient's case and plan of care with Dr. Membreno. Subjective Subjective Date/Time Seen: 08/01/20 09:03 Patient reports: no new complaints, feels better, tolerating liquids well, flatus, bowel movement (loose stools) and afebrile Interval history: Patient seen today and feeling well. Denies any abdominal pain, bloating, nausea, or vomiting. He is tolerating full liquids this morning. No other complaints at this time. Review of Systems Review of Systems: All systems reviewed & are unremarkable except as noted in HPI and below Exam Const: General: comfortable and no acute distress Orientation/consciousness: patient oriented x3 Cardio: Rate: regular rate Rhythm: regular rhythm GI: Inspection: non-distended GI Palp: Yes Soft to palpation, No Tenderness to palpation present (GI), No Guarding due to palpation present (GI), No Rigid due to palpation and No Rebound tenderness present Auscultation: normal bowel sounds Skin: General skin exam: normal color Neuro: General: moves all extremities and no focal motor deficits Extrem: General: no clubbing, cyanosis or edema Psych: Mental Status: mental status grossly normal Insight: Good insight present (Psych) Judgement: Good judgement present (Psych) Objective Data Vital Signs Vital Signs: Vital Signs - 24 hr 07/31/20 12:54 07/31/20 14:17 07/31/20 14:27 Temperature 98.6 F Pulse Rate 69 87 80 Respiratory Rate 22 H 26 H 20 Blood Pressure 160/75 H 101/66 123/84 Pulse Oximetry 97 95 95 07/31/20 15:00 07/31/20 22:00 08/01/20 06:00 Temperature 97.8 F 97.9 F 98.3 F Pulse Rate 78 69 65 Respiratory Rate 20 16 18 Blood Pressure 155/79 H 142/81 H 134/75 Pulse Oximetry 98 94 93 Intake/Output Intake/Output: Intake & Output 07/29/20 07/30/20 07/31/20 08/01/20 23:59 23:59 23:59 23:59 Intake Total 3710 4210 3620 1300 Output Total 250 1550 800 Balance 3460 2660 2820 1300 Meds/Results Medications: Active Medications Generic Name Dose Route Start Last Admin Trade Name Freq PRN Reason Stop Dose Admin Dextrose 12.5 gm 07/29/20 01:13 Dextrose 50% 25 Gm/50 Ml Syringe IV PUSH PRN PRN Hypoglycemia Protocol Famotidine 20 mg 07/29/20 09:00 08/01/20 08:52 Famotidine 20 Mg/2 Ml Vial IV PUSH 20 mg Q12HR FLORIAN Administration Glucagon 1 mg 07/29/20 01:13 Glucagon For Inj 1 Mg Vial IM PRN PRN Hypoglycemia Protocol Glucose 15 gm 07/29/20 01:13 Glucose Oral Gel 15 Gm Of Glucse In 37.5 Gm Tube PO PRN PRN Hypoglycemia Protocol Sodium Chloride 1,000 mls @ 100 mls/hr 07/28/20 21:55 06
--- NOTE | 2020-08-01 12:55 | PM.DS ---
DS: Admitting Diagnosis Admitting Diagnosis Admitting Diagnosis: Appendicitis DS: Discharge Diagnosis Discharge Diagnosis (1) Appendicitis: Qualifiers: Appendicitis type: other Qualified Code(s): K36 - Other appendicitis Code(s): K37 - Unspecified appendicitis Status: Acute Assessment and Plan: Date of Admission 07/28/20 Date of Discharge 08/01/20 Mr. Garcia is a pleasant 60 yo M with history of hypertension, [id number] type 2 diabetes, recent hospitalization for appendicitis with appendiceal abscess who presented to the ED for evaluation of abdominal pain, nausea, vomiting that had returned since his last hospital discharge. He was recently hospitalized last month and received IV antibiotics for ruptured appendicitis and had followed up with Dr. Membreno, general surgery, in the outpatient setting and was to get a colonoscopy in follow-up. Unfortunately he was unable to get the outpatient colonoscopy due to insurance barriers. He was feeling well after his hospital discharge up until 1 day prior to arrival when his abdominal pain, nausea, vomiting returned. CT abdomen/pelvis on arrival demonstrated thickened irregular cecum and ascending colon with transition of the colon near the hepatic flexure, suspicious for stricture with resultant obstruction; findings may be related to inflammation although mass was not excluded; thickened enhancing appendix with reduced surrounding inflammation. He was again evaluated by General surgery as well as Gastroenterology. He received 5 days of IV Zosyn. He underwent a colonoscopy 07/31/[address] Pan which showed a protruding circumferential, fungating, friable, infiltrative, malignant-appearing mass that was observed in the cecum. Multiple biopsies were taken. Also noticed was a localized colitis seen in the proximal ascending colon with a single opening, noted active purulent drainage. Patient's diet was advanced gradually after colonoscopy and he was tolerating meals without abdominal pain, nausea, or vomiting. General surgery has plans for interval right hemicolectomy after another week of antibiotics in hopes inflammation will have decreased prior to surgery. He is feeling well and he is eager for discharge. He is hemodynamically stable for discharge on 08/01/2020 with instructions for outpatient general surgery follow-up with Dr. Membreno in 1 week. He will discharge with another week of oral Levaquin per Dr. Membreno's recommendations. He is educated on alcohol cessation, as he drinks multiple drinks per week. Patient with recent hospitalization and outpatient general surgery follow up for acute appendicitis with abscess presents again with sudden abdominal pain, nausea, vomiting. He was feeling well after hospital discharge up until 1 day prior to arrival. GI and general surgery consulted - appreciate further recommendations. Colonoscopy 07/31/20 demonstrated a cecal mass and a localized colitis in the ascending colon. Plan is for interval right hemicolectomy. Follow-up with surgery, Dr. Membreno, in 1 week. Patient was educated regarding the possibility of malignancy with biopsy results pending. CEA is within normal limits. Dr. Membreno's office will call him with biopsy results. He was treated with 5 days of IV Zosyn, supportive care with bowel rest/NPO, pain control, antiemetics. Discharged with 1 week oral Levaquin per general surgery recommendations. (2) Colon stricture: Code(s): K56.699 - Other intestinal obstruction unspecified as to partial versus complete obstruction Status: Acute Assessment and Plan: See above. Having bowel movements and tolerating meals. (3) Alcohol abuse: Code(s): F10.10 - Alcohol abuse, uncomplicated Status: Acute Assessment and Plan: Monitored with [place] protocol.
[2020-08-01 14:01] LABS: Carcinoembryonic Antigen 1.1 ng/mL (0.0-3.0)
[2020-08-01 15:02] LABS: Glucose Point of Care 149 mg/dl (65-105)
== END 2020-08-01 15:18 | disposition home or self-care (01) | DRG 254 ==
LOC: ANHED 19:59 → ANH3MEDSUR 07-29 10:18
PROVIDERS: Emergency Medicine; Internal Medicine Gastroenterology; Nurse Practitioner Family; Admitting Provider Internal Medicine; Emergency Provider Nurse Practitioner; PCP Physician Assistant; Visit Provider Physician Assistant
PROC: 0DJD8ZZ Inspection of Lower Intestinal Tract, Via Natural or Artificial Opening Endoscopic (ICD-10-PCS; CPT 45378; principal; 2020-07-31 15:00)
DX: K36 Other appendicitis (principal); K56.699 Other intestinal obstruction unspecified as to partial versus complete obstruction; K52.9 Noninfective gastroenteritis and colitis, unspecified; K63.9 Disease of intestine, unspecified; E11.9 Type 2 diabetes mellitus without complications; Z79.84 Long term (current) use of oral hypoglycemic drugs; H54.61 Unqualified visual loss, right eye, normal vision left eye; E78.00 Pure hypercholesterolemia, unspecified; I10 Essential (primary) hypertension; Z87.891 Personal history of nicotine dependence; J44.9 Chronic obstructive pulmonary disease, unspecified; F10.10 Alcohol abuse, uncomplicated; Y90.9 Presence of alcohol in blood, level not specified; K64.8 Other hemorrhoids; K64.4 Residual hemorrhoidal skin tags
CPT/HCPCS: 36415; 74177; 80048; 80053; 81003; 82378; 82948; 83605; 83690; 83735; 85025; 85027; 87040; 88305; 96374; 96375; 99285; A9270; J2405; J2543; J2704; J3010; J7030; J7040; J7120; Q9967

== ENCOUNTER 2020-08-04 16:41 | Emergency (ER) | payer OTHER, SELFPAY ==
--- NOTE | ~2020-08-04 | XR_ITS ---
XR chest 1V portable DATE: 08/04/2020 17:27 INDICATION: Dizziness. Status post appendectomy last week. TECHNIQUE: Portable upright AP chest on 08/04/2020 at 1729 hours COMPARISON: 06/13/2020 portable AP chest FINDINGS: Normal heart size. Aortic arch calcification. No hilar or mediastinal enlargement. No pulmo nary infiltrate or consolidation, pleural effusion or pulmonary vascular congestion or pneumothorax. Degenerative spurring of the thoracic spine. IMPRESSION: No active cardiopulmonary disease Aortic atherosclerosis Reviewed, dictated and finalized at location A.
[2020-08-04 16:49] VITALS: BP 157/88; PULSE 75; RESP 18; TEMP 36.6; O2SAT 94
[2020-08-04 16:58] LABS: Glucose Point of Care 190 mg/dl (65-105)
--- NOTE | 2020-08-04 17:06 | ED.GENADULT ---
HPI - General Adult General Chief complaint: Recheck/Abnormal Lab/Rx Stated complaint: high blood sugar Time Seen by Provider: 08/04/20 17:06 Source: patient Mode of arrival: ambulatory Limitations: no limitations History of Present Illness HPI narrative: Patient 60 years old white male presented to ED with dizziness started 30 minutes after taking the first tablet of Levaquin this morning. Patient reported dizziness only when he stand up and walk, get better sitting laying down. Currently patient is asymptomatic. Patient denies any fever, chills, nausea, vomiting, chest pain, shortness of breath, headache, back pain. Patient had recent diagnosis of colon cancer few days ago was discharged from our hospital 4 days ago. History of hypertension, diabetes, smoking and social drinking. Related Data Home Medications Medication Instructions Recorded Confirmed aspirin 81 mg PO DAILY 06/12/20 07/31/20 atorvastatin 10 mg PO DAILY 06/12/20 07/31/20 glyburide 2.5 mg PO DAILY 06/12/20 07/31/20 lisinopril 10 mg PO DAILY 06/12/20 07/31/20 magnesium 250 mg PO DAILY 06/12/20 07/31/20 metformin 1,000 mg PO DAILY 06/12/20 07/31/20 Adults Multivitamin 1 tablet PO DAILY 07/10/20 07/31/20 duloxetine 30 mg PO DAILY 07/10/20 07/31/20 Allergies Allergy/AdvReac Type Severity Reaction Status Date / Time No Known Allergies Allergy Verified 07/31/20 12:52 Review of Systems Review of Systems: Narrative: CONSTITUTIONAL: Denies fever, chills, or sweats. EYES: Denies visual changes, redness, or discharge. ENT: Denies rhinorrhea, congestion, sore throat, or otalgia. CARDIOVASCULAR: Denies chest pain, palpitations, or edema. RESPIRATORY: Denies cough or dyspnea. GASTROINTESTINAL: Denies abdominal pain, nausea, vomiting, or diarrhea. GENITOURINARY: Denies dysuria or hematuria. SKIN: Denies rash or itching. MUSCULOSKELETAL: Denies back pain, joint pain, or myalgia. NEUROLOGIC: Denies headache, numbness, or weakness. PSYCHIATRIC: Denies anxiety or depression. [facility] Past Medical History Medical History Abnormal CT scan, colon Blindness of right eye Since the age of 1 Colon cancer Hypercholesterolemia Hypertension (Unknown) Leukocytosis Nausea and vomiting in adult Perforated appendicitis (06/12/20) Type 2 diabetes mellitus Surgical History Surgical History History of hand surgery Family History Family History Mother , Age 65 Cancer of kidney Father , Late 60s Cerebrovascular accident Sibling , 2 brothers and 1 sister who are all of unknown cause No problems noted. Social History Social History Social History: The patient is he has 2 children. He regularly drinks alcohol. The patient smoking many years ago. He denies any alcohol or illicit drugs. No durable power defense attorney for healthcare. The patient is a full code. 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
--- NOTE | 2020-08-04 17:19 | ECG_ITS ---
Measurements Intervals [place] Rate: 82 P: 36 ME: 152 QRS: -9 QRSD: 85 T: 39 QT: 379 QTc: 444 Interpretive Statements SINUS RHYTHM NORMAL ECG Electronically Signed On 08-04-2020 17:58:43 CDT by Jp Kitchen D.O.
[2020-08-04 17:54] VITALS: BP 126/82; BP 128/77; PULSE 72; PULSE 73
[2020-08-04 17:56] VITALS: BP 124/78; PULSE 76
[2020-08-04 18:09] LABS: Basophils Absolute Auto 0.1 K/mm3 (0.0-0.1); Basophils Percent Auto 0.8 % (0.2-1.2); Eosinophils Absolute Auto 0.1 K/mm3 (0-0.3); Eosinophils Percent Auto 1.2 % (0-4.4); Hematocrit 44.2 % (42.0-52.0); Hemoglobin 14.3 g/dL (14.0-18.0); Immature Granulocyte Absolute 0.02 K/mm3 (0.00-0.031); Immature Granulocyte Percent A 0.3 % (0-0.5); Lymphocytes Absolute Auto 1.71 K/mm3 (0.9-3.2); Lymphocytes Percent Auto 22.1 % (18.3-44.2); Mean Corpuscular HGB Conc 32.4 g/dl (32-36); Mean Corpuscular Hemoglobin 30.2 pg (26-34); Mean Corpuscular Volume 93.4 fl (80-100); Mean Platelet Volume 10.2 fl (7.4-10.4); Neutrophils Absolute Auto 4.9 K/mm3 (1.3-6.7); Neutrophils Percent Auto 62.6 % (45.5-73.1); Platelet Count Result 323 k/mm3 (150-375); Red Blood Count 4.73 M/mm3 (4.6-6.20); Red Cell Distribution Width 16.4 % (11.5-14.5); White Blood Count 7.8 K/mm3 (4.5-10.0)
[2020-08-04 18:23] LABS: Alanine Aminotransferase 18 U/L (4-50); Alkaline Phosphatase 44 U/L (38-126); Anion Gap 10 mmol/L (8-16); Aspartate Amino Transferase 33 U/L (17-59); Bilirubin,Total 0.2 mg/dL (0.2-1.3); Blood Urea Nitrogen 13 mg/dL (9-20); Calcium 9.7 mg/dL (8.4-10.2); Carbon Dioxide 29 mmol/L (22-30); Chloride 104 mmol/L (98-107); Estimated CRCL calculation 65 ml/min; Estimated Glomerular Filt Rate > 60; Glucose 168 mg/dL (75-110); Sodium 143 mmol/L (137-145)
[2020-08-04 18:35] LABS: Troponin I < 0.012 ng/mL (0.000-0.034)
[2020-08-04 18:59] VITALS: BP 126/68; PULSE 72; RESP 15; O2SAT 100
[2020-08-04 19:20] VITALS: BP 120/86; PULSE 73; RESP 14; O2SAT 97
== END 2020-08-04 19:20 | disposition home or self-care (01) ==
PROVIDERS: Emergency Provider Emergency Medicine; PCP Physician Assistant
DX: R42 Dizziness and giddiness (principal); T36.8X5A Adverse effect of other systemic antibiotics, initial encounter; I10 Essential (primary) hypertension; E11.9 Type 2 diabetes mellitus without complications; C18.9 Malignant neoplasm of colon, unspecified; E78.00 Pure hypercholesterolemia, unspecified; Z87.891 Personal history of nicotine dependence; Z79.82 Long term (current) use of aspirin; Z79.84 Long term (current) use of oral hypoglycemic drugs; I70.0 Atherosclerosis of aorta
CPT/HCPCS: 36415; 71045; 80053; 82948; 84484; 85025; 93005; 99284